=== PATIENT | female | born 1955 | race Caucasian/White ===

== ENCOUNTER 2016-06-20 07:04 | Day surgery (SDC) | payer BC ==
[2016-06-20 09:20] LABS: MCH 28.3 pg (25.7-33.7); MCHC 33.4 g/dl (32.0-36.0); MEAN CELL VOLUME 84.6 fl (80-96); MEAN PLT VOLUME 9.9 fl (7.5-11.1); PLATELET COUNT 70 K/MM3 (134-434); RDW 15.9 % (11.6-15.6)
[2016-06-20 12:42] LABS: MCH 28.5 pg (25.7-33.7); MCHC 33.3 g/dl (32.0-36.0); MEAN CELL VOLUME 85.6 fl (80-96); MEAN PLT VOLUME 8.8 fl (7.5-11.1); PLATELET COUNT 79 K/MM3 (134-434); RDW 15.5 % (11.6-15.6); WHITE BLOOD COUNT 6.3 K/mm3 (4.0-10.0)
--- NOTE | 2016-06-20 13:24 | HP ---
[facility]ellite [facility] - Chief Complaint Chief Complaint: Here for platelet transfusion. Developed a hive over right forearm. No fever/chills/cough/SOB/abdominal pain/nausea/vomiting/diarrhea/ urinary symptoms History Source: Patient - Past Medical History Allergies/Adverse Reactions: Allergies Allergy/AdvReac Type Severity Reaction Status Date / Time Penicillins AdvReac Intermediate Verified 11/05/13 03:19 Cardiovascular: Yes: HTN Endocrine: Yes: Other (hypothyroid) - Current Medications Current Medications: Home Medications Medication Instructions Recorded Ascorbic Acid [Vitamin C] 1 tab PO DAILY 04/07/13 Calcium Carbonate/Vitamin D3 1,200 mg PO DAILY 04/07/13 [Calcium 600 + Vit D 400 Softgl] Ferrous Fumarate [Iron] 65 mg PO DAILY 04/07/13 Hydrochlorothiazide [Hctz -] 1 tab PO DAILY 04/07/13 Levothyroxine [Synthroid -] 75 mg PO DAILY 04/07/13 Lisinopril [Prinivil -] 40 mg PO DAILY 04/07/13 Metformin HCl [Glucophage] 1 tab PO BID 04/07/13 Nadolol 80 mg PO DAILY tablet 06/07/14 Magnesium 250 2 tablet PO DAILY 03/08/15 Satellite Physical Exam - Physical Examination General Appearance: Well Developed, Alert & Oriented x3 Lung: Clear to auscultation, Normal air movement Heart: Regular rate & rhythm, Normal S1, Normal S2 Abdomen: Soft, No tenderness, Normal bowel sounds Extremities: No edema Neurological: Intact Satellite Impression/Plan - Impression/Plan Impression: 60 y/o patient with thrombocytopenia.HEre for transfusion of monodonor platelets. Developed a hive. Benadryl 25mg. Monitor for allergic reaction
[2016-06-20 14:01] VITALS: BP 130/76; PULSE 60; TEMP 97.9
== END 2016-06-20 19:04 | disposition home or self-care (01) ==
LOC: JONCBLOOD 07:04 → J7W 08:53 → JONCBLOOD 19:04
PROVIDERS: ATTEND Internal Medicine Hematology & Oncology
PROC: 30233R1 Transfusion of Nonautologous Platelets into Peripheral Vein, Percutaneous Approach (ICD-10-PCS; principal; 2016-06-20)
PROC: 3E033GC Introduction of Other Therapeutic Substance into Peripheral Vein, Percutaneous Approach (ICD-10-PCS; 2016-06-20)
DX: D69.6 Thrombocytopenia, unspecified (principal); C50.211 Malignant neoplasm of upper-inner quadrant of right female breast; E03.9 Hypothyroidism, unspecified; I10 Essential (primary) hypertension
CPT/HCPCS: 36430; 96374; J1200; 36415; 85027; 86078; 86850; 86900; 86901; P9034; P9038

== ENCOUNTER 2022-11-22 13:23 | Day surgery (SDC) | payer OTHER ==
[2022-11-22] MEDS ORDERED: IRON SUCROSE INJECTION 200 MG in SODIUM CHLORIDE 100 ML IVPB ONE (13:30)
[2022-11-22 14:15] LABS: BASO % 0.8 % (0-2.0); EOS % 3.5 % (0-4.5); HEMATOCRIT 27.2 % (32.4-45.2); HEMOGLOBIN 8.2 GM/dL (10.7-15.3); LYMPH % 21.7 % (8-40); MCH 21.1 pg (25.7-33.7); MCHC 30.1 g/dl (32.0-36.0); MEAN PLT VOLUME 9.1 fl (7.5-11.1); MONO % 9.9 % (3.8-10.2); NEUT % 64.1 % (42.8-82.8); PLATELET COUNT 68 10^3/uL (134-434); RBC 3.88 M/mm3 (3.60-5.2); RDW 19.8 % (11.6-15.6); WHITE BLOOD COUNT 3.5 K/mm3 (4.0-10.0)
[2022-11-22 14:50] LABS: ANISOCYTOSIS 3+; MACROCYTOSIS 0
[2022-11-22 18:05] VITALS: TEMP 98.3
[2022-11-22 18:08] VITALS: BP 127/64; PULSE 83; RESP 16
== END 2022-11-22 15:40 | disposition home or self-care (01) ==
LOC: JONCNONCHE 13:23 → J7W 13:24 → JONCNONCHE 15:40
PROVIDERS: ATTEND Internal Medicine Hematology & Oncology
PROC: 3E033GC Introduction of Other Therapeutic Substance into Peripheral Vein, Percutaneous Approach (ICD-10-PCS; principal; 2022-11-22)
DX: E61.1 Iron deficiency (principal)
CPT/HCPCS: 36415; 85025; 96365; J1756

== ENCOUNTER 2022-11-29 13:39 | Day surgery (SDC) | payer OTHER ==
[~2022-11-29 13:39] MED LIST: IRON SUCROSE INJECTION 200 MG in SODIUM CHLORIDE 100 ML IVPB ONE
[2022-11-29 14:48] LABS: BASO % 0.7 % (0-2.0); EOS % 3.1 % (0-4.5); HEMATOCRIT 27.8 % (32.4-45.2); HEMOGLOBIN 8.2 GM/dL (10.7-15.3); LYMPH % 24.6 % (8-40); MCH 21.2 pg (25.7-33.7); MCHC 29.5 g/dl (32.0-36.0); MEAN CELL VOLUME 71.8 fl (80-96); MEAN PLT VOLUME 9.7 fl (7.5-11.1); NEUT % 61.6 % (42.8-82.8); PLATELET COUNT 63 10^3/uL (134-434); RBC 3.87 M/mm3 (3.60-5.2); RDW 20.8 % (11.6-15.6); WHITE BLOOD COUNT 3.3 K/mm3 (4.0-10.0)
[2022-11-29 15:01] LABS: ANISOCYTOSIS 2+
[2022-11-29 17:28] VITALS: BP 148/83; PULSE 87; RESP 20; TEMP 97.8
== END 2022-11-29 14:35 | disposition home or self-care (01) ==
LOC: JONCNONCHE 13:39 → J7W 13:41 → JONCNONCHE 14:35
PROVIDERS: ATTEND Internal Medicine Hematology & Oncology
DX: E61.1 Iron deficiency (principal)
CPT/HCPCS: 36415; 85025; 96365; J1756

== ENCOUNTER 2022-12-06 13:34 | Day surgery (SDC) | payer OTHER ==
[2022-12-06 14:21] LABS: BASO % 0.8 % (0-2.0); EOS % 3.4 % (0-4.5); HEMATOCRIT 27.1 % (32.4-45.2); HEMOGLOBIN 8.1 GM/dL (10.7-15.3); LYMPH % 22.6 % (8-40); MCH 22.2 pg (25.7-33.7); MCHC 29.9 g/dl (32.0-36.0); MEAN CELL VOLUME 74.2 fl (80-96); MEAN PLT VOLUME 9.2 fl (7.5-11.1); MONO % 10.4 % (3.8-10.2); NEUT % 62.8 % (42.8-82.8); RBC 3.66 M/mm3 (3.60-5.2); RDW 24.6 % (11.6-15.6); WHITE BLOOD COUNT 2.6 K/mm3 (4.0-10.0)
[2022-12-06 14:23] LABS: PLATELET COUNT 50 10^3/uL (134-434)
[2022-12-06 14:41] LABS: ANISOCYTOSIS 3+; MACROCYTOSIS 0
[2022-12-06 15:56] VITALS: BP 137/61; PULSE 87; RESP 18; TEMP 97.7
== END 2022-12-06 14:55 | disposition home or self-care (01) ==
LOC: JONCNONCHE 13:34
PROVIDERS: ATTEND Internal Medicine Hematology & Oncology
PROC: 3E033GC Introduction of Other Therapeutic Substance into Peripheral Vein, Percutaneous Approach (ICD-10-PCS; principal; 2022-12-06)
DX: D50.9 Iron deficiency anemia, unspecified (principal)
CPT/HCPCS: 36415; 85025; 96365; J1756

== ENCOUNTER 2023-01-24 10:18 | Day surgery (SDC) | payer OTHER ==
[2023-01-24 11:43] VITALS: RESP 18; TEMP 98.1
[2023-01-24 11:46] VITALS: BP 107/55; PULSE 77
== END 2023-01-24 11:45 | disposition home or self-care (01) ==
LOC: JONCNONCHE 10:18 → J7W 10:35 → JONCNONCHE 11:45
PROVIDERS: ATTEND Internal Medicine Hematology & Oncology
PROC: 3E033GC Introduction of Other Therapeutic Substance into Peripheral Vein, Percutaneous Approach (ICD-10-PCS; principal; 2023-01-24)
DX: E61.1 Iron deficiency (principal)
CPT/HCPCS: 96365; J1756

== ENCOUNTER 2023-01-31 10:49 | Day surgery (SDC) | payer OTHER ==
[2023-01-31 11:28] LABS: EOS % 3.4 % (0-4.5); HEMATOCRIT 24.5 % (32.4-45.2); HEMOGLOBIN 7.2 GM/dL (10.7-15.3); LYMPH % 27.7 % (8-40); MCHC 29.6 g/dl (32.0-36.0); MEAN CELL VOLUME 74.4 fl (80-96); MEAN PLT VOLUME 8.4 fl (7.5-11.1); MONO % 9.9 % (3.8-10.2); PLATELET COUNT 60 10^3/uL (134-434); RBC 3.29 M/mm3 (3.60-5.2); RDW 23.5 % (11.6-15.6); WHITE BLOOD COUNT 2.7 K/mm3 (4.0-10.0)
[2023-01-31 12:13] LABS: ANISOCYTOSIS 2+; MACROCYTOSIS 0; OVALOCYTE 1+
[2023-01-31 12:22] VITALS: BP 120/66; PULSE 88; RESP 18; TEMP 98.2
== END 2023-01-31 12:05 | disposition home or self-care (01) ==
LOC: J7W 10:49 → JONCNONCHE 10:49
PROVIDERS: ATTEND Internal Medicine Hematology & Oncology
PROC: 3E033GC Introduction of Other Therapeutic Substance into Peripheral Vein, Percutaneous Approach (ICD-10-PCS; principal; 2023-01-31)
DX: E61.1 Iron deficiency (principal); D69.6 Thrombocytopenia, unspecified; I85.11 Secondary esophageal varices with bleeding; C50.211 Malignant neoplasm of upper-inner quadrant of right female breast
CPT/HCPCS: 36415; 85025; 96365; J1756

== ENCOUNTER 2023-02-07 10:36 | Day surgery (SDC) | payer OTHER ==
[~2023-02-07 10:36] MED LIST changes: +IRON SUCROSE COMPLEX 200 MG in SODIUM CHLORIDE 100 ML IVPB ONE; -IRON SUCROSE INJECTION 200 MG in SODIUM CHLORIDE 100 ML IVPB ONE
[2023-02-07 10:59] LABS: BASO % 0.8 % (0-2.0); EOS % 3.2 % (0-4.5); HEMATOCRIT 23.7 % (32.4-45.2); HEMOGLOBIN 7.1 GM/dL (10.7-15.3); LYMPH % 21.7 % (8-40); MCH 22.5 pg (25.7-33.7); MCHC 29.9 g/dl (32.0-36.0); MEAN CELL VOLUME 75.3 fl (80-96); MEAN PLT VOLUME 8.6 fl (7.5-11.1); MONO % 10.7 % (3.8-10.2); NEUT % 63.6 % (42.8-82.8); PLATELET COUNT 68 10^3/uL (134-434); RBC 3.15 M/mm3 (3.60-5.2); RDW 25.1 % (11.6-15.6); WHITE BLOOD COUNT 2.7 K/mm3 (4.0-10.0)
[2023-02-07 11:21] VITALS: RESP 18; TEMP 98.8
[2023-02-07 11:53] LABS: ANISOCYTOSIS 2+; MACROCYTOSIS 0
[2023-02-07 12:04] VITALS: BP 98/51; PULSE 84
== END 2023-02-07 12:10 | disposition home or self-care (01) ==
LOC: JONCNONCHE 10:36 → J7W 10:38 → JONCNONCHE 12:10
PROVIDERS: ATTEND Internal Medicine Hematology & Oncology
PROC: 3E033GC Introduction of Other Therapeutic Substance into Peripheral Vein, Percutaneous Approach (ICD-10-PCS; principal; 2023-02-07)
DX: E61.1 Iron deficiency (principal); D69.6 Thrombocytopenia, unspecified; I85.11 Secondary esophageal varices with bleeding
CPT/HCPCS: 36415; 85025; 96365

== ENCOUNTER 2023-02-14 10:50 | Day surgery (SDC) | payer OTHER ==
[2023-02-14 11:21] LABS: BASO % 1.3 % (0-2.0); EOS % 3.2 % (0-4.5); HEMATOCRIT 22.8 % (32.4-45.2); LYMPH % 22.5 % (8-40); MCHC 30.2 g/dl (32.0-36.0); MEAN CELL VOLUME 76.2 fl (80-96); MEAN PLT VOLUME 8.7 fl (7.5-11.1); PLATELET COUNT 52 10^3/uL (134-434); RBC 2.99 M/mm3 (3.60-5.2); RDW 25.7 % (11.6-15.6); WHITE BLOOD COUNT 2.2 K/mm3 (4.0-10.0)
[2023-02-14 11:32] LABS: HEMOGLOBIN 6.9 GM/dL (10.7-15.3)
[2023-02-14 13:16] LABS: ANISOCYTOSIS 2+; MACROCYTOSIS 0; OVALOCYTE 1+
[2023-02-14 16:11] VITALS: BP 110/62; PULSE 80; RESP 20; TEMP 97.7
== END 2023-02-14 12:30 | disposition home or self-care (01) ==
LOC: JONCNONCHE 10:50 → J7W 10:54 → JONCNONCHE 12:30
PROVIDERS: ATTEND Internal Medicine Hematology & Oncology
PROC: 3E033GC Introduction of Other Therapeutic Substance into Peripheral Vein, Percutaneous Approach (ICD-10-PCS; principal; 2023-02-14)
DX: D50.9 Iron deficiency anemia, unspecified (principal)
CPT/HCPCS: 36415; 85025; 96365

== ENCOUNTER 2023-02-18 08:10 | Day surgery (SDC) | payer OTHER ==
[2023-02-18] MEDS ORDERED: diphenhydrAMINE HCL 25 MG CAPSULE (FP) PO ONE (09:15)
[2023-02-18] MEDS ORDERED: ACETAMINOPHEN 325 MG TABLET (FP) PO ONE (09:15)
[2023-02-18 09:16] LABS: BASO % 1.1 % (0-2.0); EOS % 3.8 % (0-4.5); HEMATOCRIT 23.7 % (32.4-45.2); LYMPH % 20.4 % (8-40); MCH 23.3 pg (25.7-33.7); MCHC 29.3 g/dl (32.0-36.0); MEAN CELL VOLUME 79.4 fl (80-96); MEAN PLT VOLUME 8.8 fl (7.5-11.1); MONO % 11.8 % (3.8-10.2); NEUT % 62.9 % (42.8-82.8); PLATELET COUNT 52 10^3/uL (134-434); RBC 2.99 M/mm3 (3.60-5.2); RDW 26.9 % (11.6-15.6); WHITE BLOOD COUNT 2.4 K/mm3 (4.0-10.0)
[2023-02-18 09:19] LABS: POTASSIUM 4.2 mmol/L (3.5-5.1)
[2023-02-18 09:21] LABS: ALBUMIN 3.2 g/dl (3.4-5.0); CALCIUM 8.9 mg/dL (8.5-10.1)
[2023-02-18 09:22] LABS: BLOOD UREA NITROGEN 19.1 mg/dL (7-18)
[2023-02-18 09:25] LABS: CREATININE 0.8 mg/dL (0.55-1.3)
[2023-02-18 09:26] LABS: BILIRUBIN,TOTAL 0.8 mg/dL (0.2-1); TOT PROT 7.3 g/dl (6.4-8.2)
[2023-02-18] MEDS ORDERED: DEXAMETHASONE 4 MG TABLET (FP) PO ONE (09:30)
[2023-02-18 10:06] LABS: ANISOCYTOSIS 2+; MACROCYTOSIS 0
[2023-02-18] MEDS ORDERED: FUROSEMIDE 40 MG/4 ML INJECTABLE VIAL IVPUSH SCH (11:12)
[2023-02-18 17:50] LABS: HEMOGLOBIN 9.6 GM/dL (10.7-15.3); MCH 24.1 pg (25.7-33.7); MCHC 30.1 g/dl (32.0-36.0); MEAN PLT VOLUME 9.3 fl (7.5-11.1); PLATELET COUNT 55 10^3/uL (134-434); RDW 24.9 % (11.6-15.6); WHITE BLOOD COUNT 2.6 K/mm3 (4.0-10.0)
[2023-02-18 18:01] VITALS: BP 136/69; PULSE 88; RESP 20; TEMP 98.1
== END 2023-02-18 18:01 | disposition home or self-care (01) ==
LOC: JONCBLOOD 08:10 → J7W 08:16 → JONCBLOOD 18:01
PROVIDERS: ATTEND Internal Medicine Hematology & Oncology
PROC: 30233N1 Transfusion of Nonautologous Red Blood Cells into Peripheral Vein, Percutaneous Approach (ICD-10-PCS; principal; 2023-02-18)
DX: D61.1 Drug-induced aplastic anemia (principal); E55.9 Vitamin D deficiency, unspecified; Z88.0 Allergy status to penicillin
CPT/HCPCS: 36415; 36430; 80053; 85025; 85027; 86850; 86900; 86901; 86922; P9058

== ENCOUNTER 2023-03-28 10:59 | Day surgery (SDC) | payer OTHER ==
[~2023-03-28 10:59] MED LIST changes: -IRON SUCROSE COMPLEX 200 MG in SODIUM CHLORIDE 100 ML IVPB ONE; +IRON SUCROSE INJECTION 200 MG in SODIUM CHLORIDE 100 ML IVPB ONE
[2023-03-28 11:18] LABS: BASO % 1.1 % (0-2.0); EOS % 4.1 % (0-4.5); HEMATOCRIT 25.7 % (32.4-45.2); HEMOGLOBIN 7.7 GM/dL (10.7-15.3); LYMPH % 21.5 % (8-40); MCH 21.7 pg (25.7-33.7); MCHC 29.9 g/dl (32.0-36.0); MEAN CELL VOLUME 72.7 fl (80-96); MEAN PLT VOLUME 8.1 fl (7.5-11.1); MONO % 11.2 % (3.8-10.2); NEUT % 62.1 % (42.8-82.8); PLATELET COUNT 67 10^3/uL (134-434); RBC 3.54 M/mm3 (3.60-5.2); RDW 20.8 % (11.6-15.6); WHITE BLOOD COUNT 3.1 K/mm3 (4.0-10.0)
[2023-03-28 12:21] LABS: ANISOCYTOSIS 2+; MACROCYTOSIS 0
[2023-03-28 14:56] VITALS: BP 134/84; PULSE 85; RESP 20; TEMP 98.1
== END 2023-03-28 12:30 | disposition home or self-care (01) ==
LOC: JONCNONCHE 10:59 → J7W 11:15 → JONCNONCHE 12:30
PROVIDERS: ATTEND Internal Medicine Hematology & Oncology
PROC: 3E033GC Introduction of Other Therapeutic Substance into Peripheral Vein, Percutaneous Approach (ICD-10-PCS; principal; 2023-03-28)
DX: E61.1 Iron deficiency (principal)
CPT/HCPCS: 36415; 85025; 96365; J1756

== ENCOUNTER 2023-04-04 10:57 | Day surgery (SDC) | payer OTHER ==
[2023-04-04 17:06] VITALS: RESP 18; TEMP 98.1
[2023-04-04 17:09] VITALS: BP 107/57; PULSE 83
== END 2023-04-04 12:20 | disposition home or self-care (01) ==
LOC: JONCNONCHE 10:57 → J7W 10:58 → JONCNONCHE 12:20
PROVIDERS: ATTEND Internal Medicine Hematology & Oncology
PROC: 3E033GC Introduction of Other Therapeutic Substance into Peripheral Vein, Percutaneous Approach (ICD-10-PCS; principal; 2023-04-04)
DX: D50.9 Iron deficiency anemia, unspecified (principal)
CPT/HCPCS: 96365; J1756

== ENCOUNTER 2023-04-11 10:50 | Day surgery (SDC) | payer OTHER ==
[2023-04-11 11:22] LABS: BASO % 1.2 % (0-2.0); EOS % 3.3 % (0-4.5); HEMATOCRIT 26.2 % (32.4-45.2); LYMPH % 23.6 % (8-40); MCH 23.1 pg (25.7-33.7); MCHC 30.5 g/dl (32.0-36.0); MEAN CELL VOLUME 75.6 fl (80-96); MEAN PLT VOLUME 8.6 fl (7.5-11.1); MONO % 10.2 % (3.8-10.2); NEUT % 61.7 % (42.8-82.8); PLATELET COUNT 75 10^3/uL (134-434); RBC 3.47 M/mm3 (3.60-5.2); RDW 25.8 % (11.6-15.6); WHITE BLOOD COUNT 3.7 K/mm3 (4.0-10.0)
[2023-04-11 11:51] LABS: ANISOCYTOSIS 3+; MACROCYTOSIS 0
[2023-04-11 17:19] VITALS: BP 107/59; PULSE 88; RESP 20; TEMP 97.9
== END 2023-04-11 13:00 | disposition home or self-care (01) ==
LOC: J7W 10:50 → JONCNONCHE 10:50
PROVIDERS: ATTEND Internal Medicine Hematology & Oncology
PROC: 3E033GC Introduction of Other Therapeutic Substance into Peripheral Vein, Percutaneous Approach (ICD-10-PCS; principal; 2023-04-11)
DX: E61.1 Iron deficiency (principal)
CPT/HCPCS: 36415; 85025; 96365; J1756

== ENCOUNTER 2023-04-18 10:49 | Day surgery (SDC) | payer OTHER ==
[~2023-04-18 10:49] MED LIST changes: +IRON SUCROSE COMPLEX 200 MG in SODIUM CHLORIDE 100 ML IVPB ONE; -IRON SUCROSE INJECTION 200 MG in SODIUM CHLORIDE 100 ML IVPB ONE
[2023-04-18 11:15] LABS: BASO % 0.8 % (0-2.0); HEMATOCRIT 25.9 % (32.4-45.2); HEMOGLOBIN 7.8 GM/dL (10.7-15.3); LYMPH % 19.8 % (8-40); MCH 23.4 pg (25.7-33.7); MEAN CELL VOLUME 77.9 fl (80-96); MEAN PLT VOLUME 8.2 fl (7.5-11.1); MONO % 10.6 % (3.8-10.2); NEUT % 64.8 % (42.8-82.8); PLATELET COUNT 72 10^3/uL (134-434); RBC 3.32 M/mm3 (3.60-5.2); RDW 26.1 % (11.6-15.6)
[2023-04-18 11:39] LABS: ANISOCYTOSIS 2+
[2023-04-18 11:40] LABS: MACROCYTOSIS 1+
[2023-04-18 17:17] VITALS: BP 117/61; PULSE 83; RESP 20; TEMP 98.4
== END 2023-04-18 12:30 | disposition home or self-care (01) ==
LOC: JONCNONCHE 10:49 → J7W 10:49 → JONCNONCHE 12:30
PROVIDERS: ATTEND Internal Medicine Hematology & Oncology
PROC: 3E033GC Introduction of Other Therapeutic Substance into Peripheral Vein, Percutaneous Approach (ICD-10-PCS; principal; 2023-04-18)
DX: E61.1 Iron deficiency (principal)
CPT/HCPCS: 36415; 85025; 96365

== ENCOUNTER 2023-04-25 10:53 | Day surgery (SDC) | payer OTHER ==
[2023-04-25 11:28] LABS: BASO % 0.9 % (0-2.0); EOS % 3.4 % (0-4.5); HEMOGLOBIN 7.6 GM/dL (10.7-15.3); LYMPH % 21.1 % (8-40); MCHC 30.4 g/dl (32.0-36.0); MEAN CELL VOLUME 78.9 fl (80-96); MEAN PLT VOLUME 8.5 fl (7.5-11.1); MONO % 11.3 % (3.8-10.2); NEUT % 63.3 % (42.8-82.8); PLATELET COUNT 57 10^3/uL (134-434); RBC 3.16 M/mm3 (3.60-5.2); RDW 26.6 % (11.6-15.6); WHITE BLOOD COUNT 2.6 K/mm3 (4.0-10.0)
[2023-04-25] MEDS ORDERED: IRON SUCROSE COMPLEX 200 MG in SODIUM CHLORIDE 100 ML IVPB ONE (11:30)
[2023-04-25 12:13] VITALS: RESP 18; TEMP 98.2
[2023-04-25 12:16] VITALS: BP 129/62; PULSE 80
[2023-04-25 12:46] LABS: ANISOCYTOSIS 2+; MACROCYTOSIS 0
== END 2023-04-25 12:25 | disposition home or self-care (01) ==
LOC: JONCNONCHE 10:53 → J7W 10:54 → JONCNONCHE 12:25
PROVIDERS: ATTEND Internal Medicine Hematology & Oncology
PROC: 3E033GC Introduction of Other Therapeutic Substance into Peripheral Vein, Percutaneous Approach (ICD-10-PCS; principal; 2023-04-25)
DX: E61.1 Iron deficiency (principal)
CPT/HCPCS: 36415; 85025; 96365

== ENCOUNTER 2023-05-09 11:00 | Day surgery (SDC) | payer OTHER ==
[2023-05-09 11:23] LABS: EOS % 3.9 % (0-4.5); HEMATOCRIT 25.3 % (32.4-45.2); HEMOGLOBIN 7.6 GM/dL (10.7-15.3); LYMPH % 18.2 % (8-40); MCH 23.7 pg (25.7-33.7); MCHC 30.1 g/dl (32.0-36.0); MEAN CELL VOLUME 78.7 fl (80-96); MEAN PLT VOLUME 8.7 fl (7.5-11.1); MONO % 10.3 % (3.8-10.2); NEUT % 66.6 % (42.8-82.8); PLATELET COUNT 67 10^3/uL (134-434); RBC 3.21 M/mm3 (3.60-5.2); RDW 24.1 % (11.6-15.6); WHITE BLOOD COUNT 2.5 K/mm3 (4.0-10.0)
[2023-05-09] MEDS: IRON SUCROSE INJECTION 200 MG in SODIUM CHLORIDE 100 ML IVPB ONE (13:01)
[2023-05-09 18:36] VITALS: RESP 18; TEMP 98
[2023-05-09 18:37] VITALS: BP 118/80; PULSE 78
== END 2023-05-09 14:00 | disposition home or self-care (01) ==
LOC: JONCNONCHE 11:00 → J7W 11:00 → JONCNONCHE 14:00
PROVIDERS: ATTEND Internal Medicine Hematology & Oncology
PROC: 3E033GC Introduction of Other Therapeutic Substance into Peripheral Vein, Percutaneous Approach (ICD-10-PCS; principal; 2023-05-09)
DX: E61.1 Iron deficiency (principal)
CPT/HCPCS: 36415; 85025; 96365; J1756

== ENCOUNTER 2023-05-16 11:01 | Day surgery (SDC) | payer OTHER ==
[2023-05-16 11:23] LABS: BASO % 0.7 % (0-2.0); EOS % 4.6 % (0-4.5); HEMATOCRIT 23.5 % (32.4-45.2); HEMOGLOBIN 7.2 GM/dL (10.7-15.3); LYMPH % 20.5 % (8-40); MCH 24.1 pg (25.7-33.7); MCHC 30.7 g/dl (32.0-36.0); MEAN CELL VOLUME 78.5 fl (80-96); MEAN PLT VOLUME 8.4 fl (7.5-11.1); MONO % 10.7 % (3.8-10.2); NEUT % 63.5 % (42.8-82.8); PLATELET COUNT 62 10^3/uL (134-434); RDW 25.2 % (11.6-15.6); WHITE BLOOD COUNT 2.9 K/mm3 (4.0-10.0)
[2023-05-16] MEDS: IRON SUCROSE INJECTION 200 MG in SODIUM CHLORIDE 100 ML IVPB ONE (11:25)
[2023-05-16 12:28] LABS: ANISOCYTOSIS 3+; MACROCYTOSIS 0
[2023-05-16 15:39] VITALS: RESP 16; TEMP 98.2
[2023-05-16 15:41] VITALS: BP 103/58; PULSE 82
== END 2023-05-16 12:25 | disposition home or self-care (01) ==
LOC: J7W 11:01 → JONCNONCHE 11:01
PROVIDERS: ATTEND Internal Medicine Hematology & Oncology
PROC: 3E033GC Introduction of Other Therapeutic Substance into Peripheral Vein, Percutaneous Approach (ICD-10-PCS; principal; 2023-05-16)
DX: E61.1 Iron deficiency (principal)
CPT/HCPCS: 36415; 85025; 96365; J1756

== ENCOUNTER 2023-05-30 10:53 | Day surgery (SDC) | payer OTHER ==
[2023-05-30] MEDS: IRON SUCROSE INJECTION 200 MG in SODIUM CHLORIDE 100 ML IVPB ONE (11:16)
[2023-05-30 11:21] LABS: BASO % 1.4 % (0-2.0); EOS % 4.7 % (0-4.5); HEMATOCRIT 26.9 % (32.4-45.2); HEMOGLOBIN 8.2 GM/dL (10.7-15.3); LYMPH % 21.9 % (8-40); MCHC 30.6 g/dl (32.0-36.0); MEAN CELL VOLUME 81.7 fl (80-96); MEAN PLT VOLUME 9.6 fl (7.5-11.1); MONO % 11.9 % (3.8-10.2); NEUT % 60.1 % (42.8-82.8); PLATELET COUNT 65 10^3/uL (134-434); RBC 3.29 M/mm3 (3.60-5.2); RDW 22.9 % (11.6-15.6); WHITE BLOOD COUNT 2.4 K/mm3 (4.0-10.0)
[2023-05-30 12:07] LABS: ANISOCYTOSIS 2+; MACROCYTOSIS 0; TARGET CELLS 0
[2023-05-30 18:02] VITALS: BP 111/59; PULSE 77; RESP 16; TEMP 97.8
== END 2023-05-30 12:15 | disposition home or self-care (01) ==
LOC: JONCNONCHE 10:53 → J7W 10:53 → JONCNONCHE 12:15
PROVIDERS: ATTEND Internal Medicine Hematology & Oncology
PROC: 3E033GC Introduction of Other Therapeutic Substance into Peripheral Vein, Percutaneous Approach (ICD-10-PCS; principal; 2023-05-30)
DX: D50.9 Iron deficiency anemia, unspecified (principal)
CPT/HCPCS: 36415; 85025; 96365; J1756

== ENCOUNTER 2023-06-20 10:57 | Day surgery (SDC) | payer OTHER ==
[2023-06-20 11:34] LABS: BASO % 0.7 % (0-2.0); HEMATOCRIT 23.1 % (32.4-45.2); LYMPH % 27.7 % (8-40); MCH 23.6 pg (25.7-33.7); MCHC 29.8 g/dl (32.0-36.0); MEAN CELL VOLUME 79.2 fl (80-96); MEAN PLT VOLUME 8.9 fl (7.5-11.1); MONO % 10.2 % (3.8-10.2); NEUT % 57.4 % (42.8-82.8); PLATELET COUNT 65 10^3/uL (134-434); RBC 2.92 M/mm3 (3.60-5.2); RDW 21.5 % (11.6-15.6); WHITE BLOOD COUNT 2.3 K/mm3 (4.0-10.0)
[2023-06-20 11:38] LABS: HEMOGLOBIN 6.9 GM/dL (10.7-15.3)
[2023-06-20] MEDS: IRON SUCROSE INJECTION 300 MG in SODIUM CHLORIDE 250 ML IVPB ONE (11:57)
[2023-06-20 12:27] LABS: ANISOCYTOSIS 2+; MACROCYTOSIS 0
[2023-06-20 16:59] VITALS: BP 118/55; PULSE 89; RESP 20; TEMP 98.7
== END 2023-06-20 13:10 | disposition home or self-care (01) ==
LOC: JONCNONCHE 10:57 → J7W 10:58 → JONCNONCHE 13:10
PROVIDERS: ATTEND Internal Medicine Hematology & Oncology
PROC: 3E033GC Introduction of Other Therapeutic Substance into Peripheral Vein, Percutaneous Approach (ICD-10-PCS; principal; 2023-06-20)
DX: D50.9 Iron deficiency anemia, unspecified (principal)
CPT/HCPCS: 36415; 85025; 96365; J1756

== ENCOUNTER 2023-06-27 10:45 | Day surgery (SDC) | payer OTHER ==
[2023-06-27] MEDS: IRON SUCROSE INJECTION 300 MG in SODIUM CHLORIDE 250 ML IVPB ONE (12:01)
[2023-06-27 16:52] VITALS: RESP 18; TEMP 97.7
[2023-06-27 16:54] VITALS: BP 103/51; PULSE 71
== END 2023-06-27 14:00 | disposition home or self-care (01) ==
LOC: J7W 10:45 → JONCNONCHE 10:45
PROVIDERS: ATTEND Internal Medicine Hematology & Oncology
PROC: 3E033GC Introduction of Other Therapeutic Substance into Peripheral Vein, Percutaneous Approach (ICD-10-PCS; principal; 2023-06-27)
DX: D50.9 Iron deficiency anemia, unspecified (principal)
CPT/HCPCS: 96365; J1756

== ENCOUNTER 2023-07-04 10:45 | Day surgery (SDC) | payer OTHER ==
[2023-07-04 11:37] LABS: BASO % 1.1 % (0-2.0); EOS % 4.4 % (0-4.5); HEMATOCRIT 23.4 % (32.4-45.2); LYMPH % 21.8 % (8-40); MCH 24.8 pg (25.7-33.7); MCHC 29.7 g/dl (32.0-36.0); MEAN CELL VOLUME 83.3 fl (80-96); MEAN PLT VOLUME 9.4 fl (7.5-11.1); MONO % 11.8 % (3.8-10.2); NEUT % 60.9 % (42.8-82.8); PLATELET COUNT 63 10^3/uL (134-434); RBC 2.81 M/mm3 (3.60-5.2); RDW 25.5 % (11.6-15.6); WHITE BLOOD COUNT 2.2 K/mm3 (4.0-10.0)
[2023-07-04] MEDS: IRON SUCROSE INJECTION 300 MG in SODIUM CHLORIDE 250 ML IVPB ONE (11:40)
[2023-07-04 12:32] LABS: ANISOCYTOSIS 2+; MACROCYTOSIS 1+
[2023-07-04 16:34] VITALS: BP 107/54; PULSE 88; RESP 18; TEMP 98
== END 2023-07-04 12:40 | disposition home or self-care (01) ==
LOC: JONCNONCHE 10:45 → J7W 12:21 → JONCNONCHE 12:40
PROVIDERS: ATTEND Internal Medicine Hematology & Oncology
PROC: 3E033GC Introduction of Other Therapeutic Substance into Peripheral Vein, Percutaneous Approach (ICD-10-PCS; principal; 2023-07-04)
DX: E61.1 Iron deficiency (principal)
CPT/HCPCS: 36415; 85025; 96365; J1756

== ENCOUNTER 2023-07-11 10:44 | Day surgery (SDC) | payer OTHER ==
[2023-07-11 11:16] LABS: BASO % 0.9 % (0-2.0); EOS % 4.6 % (0-4.5); HEMATOCRIT 23.4 % (32.4-45.2); HEMOGLOBIN 7.1 GM/dL (10.7-15.3); LYMPH % 25.3 % (8-40); MCH 25.5 pg (25.7-33.7); MCHC 30.4 g/dl (32.0-36.0); MEAN CELL VOLUME 83.8 fl (80-96); MEAN PLT VOLUME 8.7 fl (7.5-11.1); MONO % 12.4 % (3.8-10.2); NEUT % 56.8 % (42.8-82.8); PLATELET COUNT 61 10^3/uL (134-434); RBC 2.79 M/mm3 (3.60-5.2); RDW 25.8 % (11.6-15.6); WHITE BLOOD COUNT 2.3 K/mm3 (4.0-10.0)
[2023-07-11] MEDS: IRON SUCROSE INJECTION 300 MG in SODIUM CHLORIDE 250 ML IVPB ONE (11:30)
[2023-07-11 11:41] LABS: ANISOCYTOSIS 3+; MACROCYTOSIS 0
[2023-07-11 15:28] VITALS: BP 136/61; PULSE 84; RESP 16; TEMP 97.8
== END 2023-07-11 13:30 | disposition home or self-care (01) ==
LOC: JONCNONCHE 10:44 → J7W 11:00 → JONCNONCHE 13:30
PROVIDERS: ATTEND Internal Medicine Hematology & Oncology
PROC: 3E033GC Introduction of Other Therapeutic Substance into Peripheral Vein, Percutaneous Approach (ICD-10-PCS; principal; 2023-07-11)
DX: D50.9 Iron deficiency anemia, unspecified (principal)
CPT/HCPCS: 36415; 85025; 96365; J1756

== ENCOUNTER 2023-07-15 07:30 | Day surgery (SDC) | payer OTHER ==
[2023-07-15 08:00] LABS: BASO % 1.3 % (0-2.0); HEMATOCRIT 24.3 % (32.4-45.2); HEMOGLOBIN 7.6 GM/dL (10.7-15.3); LYMPH % 20.1 % (8-40); MCH 26.1 pg (25.7-33.7); MCHC 31.2 g/dl (32.0-36.0); MEAN CELL VOLUME 83.6 fl (80-96); MEAN PLT VOLUME 9.6 fl (7.5-11.1); MONO % 13.5 % (3.8-10.2); NEUT % 60.1 % (42.8-82.8); PLATELET COUNT 60 10^3/uL (134-434); RBC 2.91 M/mm3 (3.60-5.2); RDW 25.8 % (11.6-15.6)
[2023-07-15 08:14] LABS: ALBUMIN 3.1 g/dl (3.4-5.0); BLOOD UREA NITROGEN 14.7 mg/dL (7-18); CALCIUM 8.8 mg/dL (8.5-10.1); MAGNESIUM 1.5 mg/dL (1.8-2.4)
[2023-07-15 08:16] LABS: CREATININE 0.8 mg/dL (0.55-1.3)
[2023-07-15 08:18] LABS: TOT PROT 6.6 g/dl (6.4-8.2)
[2023-07-15 08:45] LABS: ANISOCYTOSIS 2+; MACROCYTOSIS 0
[2023-07-15] MEDS: ACETAMINOPHEN 325 MG TABLET (FP) PO ONE (08:56)
[2023-07-15] MEDS: diphenhydrAMINE HCL 25 MG CAPSULE (FP) PO ONE (08:56)
[2023-07-15] MEDS: DEXAMETHASONE 4 MG TABLET (FP) PO ONE (08:56)
[2023-07-15 10:03] VITALS: RESP 20
[2023-07-15] MEDS: MAGNESIUM OXIDE 400 MG TABLET (FP) PO ONE (11:56)
[2023-07-15] MEDS: MAGNESIUM 2GM/50ML STERILE WATER IVPB IVPB ONE (14:04)
[2023-07-15] MEDS: FUROSEMIDE 40 MG/4 ML INJECTABLE VIAL IVPUSH ONE (14:11)
[2023-07-15] MEDS: TBO-FILGRASTIM 480 MCG/0.8 ML DISP.SYRIN SQ ONE (18:00)
[2023-07-15 18:44] VITALS: BP 122/64
[2023-07-15 19:01] LABS: BASO % 3.4 % (0-2.0); EOS % 0.8 % (0-4.5); HEMATOCRIT 34.2 % (32.4-45.2); HEMOGLOBIN 10.5 GM/dL (10.7-15.3); LYMPH % 51.2 % (8-40); MCH 26.7 pg (25.7-33.7); MCHC 30.8 g/dl (32.0-36.0); MEAN CELL VOLUME 86.7 fl (80-96); MEAN PLT VOLUME 9.3 fl (7.5-11.1); MONO % 3.1 % (3.8-10.2); NEUT % 41.5 % (42.8-82.8); PLATELET COUNT 55 10^3/uL (134-434); RBC 3.94 M/mm3 (3.60-5.2); RDW 24.2 % (11.6-15.6)
[2023-07-15 19:13] LABS: WHITE BLOOD COUNT 0.8 K/mm3 (4.0-10.0)
[2023-07-16 07:43] VITALS: PULSE 76; TEMP 98.2
== END 2023-07-15 18:44 | disposition home or self-care (01) ==
LOC: JONCBLOOD 07:30 → J7W 07:38 → JONCBLOOD 18:44
PROVIDERS: ATTEND Internal Medicine Hematology & Oncology
PROC: 30233N1 Transfusion of Nonautologous Red Blood Cells into Peripheral Vein, Percutaneous Approach (ICD-10-PCS; principal; 2023-07-15)
DX: D50.9 Iron deficiency anemia, unspecified (principal)
CPT/HCPCS: 36415; 36430; 80053; 83735; 85025; 86850; 86900; 86901; 86922; 96372; J1447; P9058

== ENCOUNTER 2023-07-16 10:04 | Day surgery (SDC) | payer OTHER ==
[2023-07-16] MEDS: TBO-FILGRASTIM 480 MCG/0.8 ML DISP.SYRIN SQ ONE (10:20)
[2023-07-16 10:45] VITALS: TEMP 97.4
[2023-07-16 10:47] LABS: BASO % 0.2 % (0-2.0); EOS % 0.2 % (0-4.5); HEMATOCRIT 31.2 % (32.4-45.2); HEMOGLOBIN 9.6 GM/dL (10.7-15.3); LYMPH % 4.8 % (8-40); MCH 26.2 pg (25.7-33.7); MCHC 30.8 g/dl (32.0-36.0); MEAN CELL VOLUME 85.1 fl (80-96); MEAN PLT VOLUME 9.7 fl (7.5-11.1); MONO % 5.8 % (3.8-10.2); PLATELET COUNT 58 10^3/uL (134-434); RBC 3.66 M/mm3 (3.60-5.2); RDW 23.8 % (11.6-15.6)
[2023-07-16 10:48] VITALS: BP 116/71; RESP 18
[2023-07-16 10:49] VITALS: PULSE 98
== END 2023-07-16 10:20 | disposition home or self-care (01) ==
LOC: JONCCHEMO 10:04 → J7W 10:30
PROVIDERS: ATTEND Internal Medicine Hematology & Oncology
PROC: 3E013GC Introduction of Other Therapeutic Substance into Subcutaneous Tissue, Percutaneous Approach (ICD-10-PCS; principal; 2023-07-16)
DX: E61.1 Iron deficiency (principal)
CPT/HCPCS: 36415; 85025; 96372; J1447

== ENCOUNTER 2023-09-05 10:53 | Day surgery (SDC) | payer OTHER ==
[2023-09-05] MEDS: IRON SUCROSE INJECTION 300 MG in SODIUM CHLORIDE 250 ML IVPB ONE (11:15)
[2023-09-05] MEDS: MAGNESIUM SULFATE IN WATER 2 GM/50 ML IVPB IVPB ONE (12:50)
[2023-09-05 17:03] VITALS: RESP 16; TEMP 97.7
[2023-09-05 17:08] VITALS: BP 115/60; PULSE 68
== END 2023-09-05 14:00 | disposition home or self-care (01) ==
LOC: JONCCHEMO 10:53 → J7W 10:53 → JONCCHEMO 14:00
PROVIDERS: ATTEND Internal Medicine Hematology & Oncology
PROC: 3E033GC Introduction of Other Therapeutic Substance into Peripheral Vein, Percutaneous Approach (ICD-10-PCS; principal; 2023-09-05)
DX: E61.1 Iron deficiency (principal)
CPT/HCPCS: 96365; 96367; J1756

== ENCOUNTER 2023-09-12 10:30 | Day surgery (SDC) | payer OTHER ==
[2023-09-12] MEDS: IRON SUCROSE INJECTION 300 MG in SODIUM CHLORIDE 250 ML IVPB ONE (11:15)
[2023-09-12] MEDS: MAGNESIUM SULFATE IN WATER 2 GM/50 ML IVPB IVPB ONE (13:01)
[2023-09-12 15:43] VITALS: BP 108/55; PULSE 75; RESP 20
[2023-09-12 15:52] VITALS: TEMP 97.7
== END 2023-09-12 14:30 | disposition home or self-care (01) ==
LOC: JONCCHEMO 10:30 → J7W 10:30 → JONCCHEMO 14:30
PROVIDERS: ATTEND Internal Medicine Hematology & Oncology
PROC: 3E033GC Introduction of Other Therapeutic Substance into Peripheral Vein, Percutaneous Approach (ICD-10-PCS; principal; 2023-09-12)
DX: E61.1 Iron deficiency (principal)
CPT/HCPCS: 96365; J1756

== ENCOUNTER 2023-09-19 11:10 | Day surgery (SDC) | payer OTHER ==
[2023-09-19] MEDS: MAGNESIUM SULFATE IN WATER 2 GM/50 ML IVPB IVPB ONE (11:11)
[2023-09-19 11:16] LABS: BASO % 0.8 % (0-2.0); EOS % 5.3 % (0-4.5); LYMPH % 18.6 % (8-40); MCH 26.9 pg (25.7-33.7); MCHC 32.2 g/dl (32.0-36.0); MEAN CELL VOLUME 83.5 fl (80-96); MEAN PLT VOLUME 9.4 fl (7.5-11.1); NEUT % 61.3 % (42.8-82.8); PLATELET COUNT 50 10^3/uL (134-434); RBC 3.36 M/mm3 (3.60-5.2); WHITE BLOOD COUNT 2.2 K/mm3 (4.0-10.0)
[2023-09-19 11:34] LABS: ANISOCYTOSIS 1+; MACROCYTOSIS 1+
[2023-09-19] MEDS: IRON SUCROSE INJECTION 300 MG in SODIUM CHLORIDE 250 ML IVPB ONE (12:05)
[2023-09-19 15:31] VITALS: RESP 20; TEMP 98.3
[2023-09-19 15:42] VITALS: BP 101/57; PULSE 71
== END 2023-09-19 14:00 | disposition home or self-care (01) ==
LOC: JONCCHEMO 11:10 → J7W 11:11 → JONCCHEMO 14:00
PROVIDERS: ATTEND Internal Medicine Hematology & Oncology
PROC: 3E033GC Introduction of Other Therapeutic Substance into Peripheral Vein, Percutaneous Approach (ICD-10-PCS; principal; 2023-09-19)
DX: E61.1 Iron deficiency (principal)
CPT/HCPCS: 36415; 83735; 85025; 96365; J1756

== ENCOUNTER 2023-09-26 11:03 | Day surgery (SDC) | payer OTHER ==
[2023-09-26] MEDS: IRON SUCROSE INJECTION 300 MG in SODIUM CHLORIDE 250 ML IVPB ONE (11:23)
[2023-09-26 11:31] LABS: BASO % 0.8 % (0-2.0); EOS % 4.6 % (0-4.5); HEMATOCRIT 28.8 % (32.4-45.2); HEMOGLOBIN 9.1 GM/dL (10.7-15.3); LYMPH % 19.9 % (8-40); MCH 26.7 pg (25.7-33.7); MCHC 31.7 g/dl (32.0-36.0); MEAN CELL VOLUME 84.4 fl (80-96); MEAN PLT VOLUME 8.6 fl (7.5-11.1); MONO % 9.2 % (3.8-10.2); NEUT % 65.5 % (42.8-82.8); PLATELET COUNT 50 10^3/uL (134-434); RBC 3.41 M/mm3 (3.60-5.2); RDW 23.6 % (11.6-15.6); WHITE BLOOD COUNT 2.2 K/mm3 (4.0-10.0)
[2023-09-26] MEDS: MAGNESIUM SULFATE IN WATER 2 GM/50 ML IVPB IVPB ONE (13:00)
[2023-09-26 16:02] VITALS: TEMP 97.9
[2023-09-26 16:10] VITALS: BP 131/65; PULSE 80; RESP 20
== END 2023-09-26 14:20 | disposition home or self-care (01) ==
LOC: JONCNONCHE 11:03 → J7W 11:04 → JONCNONCHE 14:20
PROVIDERS: ATTEND Internal Medicine Hematology & Oncology
PROC: 3E033GC Introduction of Other Therapeutic Substance into Peripheral Vein, Percutaneous Approach (ICD-10-PCS; principal; 2023-09-26)
DX: D50.9 Iron deficiency anemia, unspecified (principal)
CPT/HCPCS: 36415; 83735; 85025; 96365; J1756

== ENCOUNTER 2023-10-10 11:09 | Day surgery (SDC) | payer OTHER ==
[2023-10-10] MEDS: MAGNESIUM SULFATE IN WATER 2 GM/50 ML IVPB IVPB ONE (11:40)
[2023-10-10 11:47] LABS: HEMATOCRIT 25.6 % (32.4-45.2); HEMOGLOBIN 8.2 GM/dL (10.7-15.3); MCH 27.2 pg (25.7-33.7); MEAN CELL VOLUME 85.2 fl (80-96); MEAN PLT VOLUME 9.4 fl (7.5-11.1); PLATELET COUNT 48 10^3/uL (134-434); RBC 3.01 M/mm3 (3.60-5.2); RDW 21.5 % (11.6-15.6)
[2023-10-10 11:54] LABS: WHITE BLOOD COUNT 1.9 K/mm3 (4.0-10.0)
[2023-10-10 12:28] LABS: ANISOCYTOSIS 2+; MACROCYTOSIS 0
[2023-10-10] MEDS: IRON SUCROSE INJECTION 300 MG in SODIUM CHLORIDE 250 ML IVPB ONE (12:45)
[2023-10-10 13:13] VITALS: RESP 20; TEMP 98.3
[2023-10-10 14:19] VITALS: BP 123/64; PULSE 75
== END 2023-10-10 14:20 | disposition home or self-care (01) ==
LOC: JONCNONCHE 11:09 → J7W 11:14 → JONCNONCHE 14:20
PROVIDERS: ATTEND Internal Medicine Hematology & Oncology
PROC: 3E033GC Introduction of Other Therapeutic Substance into Peripheral Vein, Percutaneous Approach (ICD-10-PCS; principal; 2023-10-10)
DX: E61.1 Iron deficiency (principal)
CPT/HCPCS: 36415; 85025; 96365; J1756

== ENCOUNTER 2023-10-17 11:04 | Day surgery (SDC) | payer OTHER ==
[2023-10-17] MEDS: IRON SUCROSE INJECTION 300 MG in SODIUM CHLORIDE 250 ML IVPB ONE (11:17)
[2023-10-17] MEDS: MAGNESIUM SULFATE IN WATER 2 GM/50 ML IVPB IVPB ONE (11:18)
[2023-10-17 11:40] LABS: BASO % 0.9 % (0-2.0); EOS % 4.6 % (0-4.5); HEMATOCRIT 27.7 % (32.4-45.2); HEMOGLOBIN 8.9 GM/dL (10.7-15.3); LYMPH % 21.4 % (8-40); MCH 27.2 pg (25.7-33.7); MCHC 32.1 g/dl (32.0-36.0); MEAN CELL VOLUME 84.6 fl (80-96); MONO % 9.4 % (3.8-10.2); NEUT % 63.7 % (42.8-82.8); PLATELET COUNT 47 10^3/uL (134-434); RBC 3.27 M/mm3 (3.60-5.2); RDW 22.5 % (11.6-15.6); WHITE BLOOD COUNT 2.1 K/mm3 (4.0-10.0)
[2023-10-17 12:17] LABS: ANISOCYTOSIS 2+; MACROCYTOSIS 1+
[2023-10-17 12:18] LABS: PLATELET ESTIMATE DECREASED
[2023-10-17 17:07] VITALS: BP 134/69; PULSE 76; RESP 20; TEMP 98.2
== END 2023-10-17 12:10 | disposition home or self-care (01) ==
LOC: JONCNONCHE 11:04 → J7W 11:04 → JONCNONCHE 12:10
PROVIDERS: ATTEND Internal Medicine Hematology & Oncology
PROC: 3E033GC Introduction of Other Therapeutic Substance into Peripheral Vein, Percutaneous Approach (ICD-10-PCS; principal; 2023-10-17)
DX: D50.9 Iron deficiency anemia, unspecified (principal)
CPT/HCPCS: 36415; 83735; 85025; 96365; J1756

== ENCOUNTER 2023-10-24 10:45 | Day surgery (SDC) | payer OTHER ==
[2023-10-24] MEDS: IRON SUCROSE INJECTION 300 MG in SODIUM CHLORIDE 250 ML IVPB ONE (11:19)
[2023-10-24 11:25] LABS: BASO % 0.9 % (0-2.0); HEMATOCRIT 30.1 % (32.4-45.2); HEMOGLOBIN 9.7 GM/dL (10.7-15.3); MCH 27.4 pg (25.7-33.7); MCHC 32.1 g/dl (32.0-36.0); MEAN CELL VOLUME 85.4 fl (80-96); MEAN PLT VOLUME 9.4 fl (7.5-11.1); MONO % 5.1 % (3.8-10.2); PLATELET COUNT 51 10^3/uL (134-434); RBC 3.52 M/mm3 (3.60-5.2); RDW 22.8 % (11.6-15.6); WHITE BLOOD COUNT 2.6 K/mm3 (4.0-10.0)
[2023-10-24 12:14] LABS: ANISOCYTOSIS 3+; MACROCYTOSIS 3+
[2023-10-24] MEDS: MAGNESIUM SULFATE IN WATER 2 GM/50 ML IVPB IVPB ONE (12:57)
[2023-10-24 18:48] VITALS: BP 130/62; PULSE 75; RESP 16; TEMP 97.8
== END 2023-10-24 14:00 | disposition home or self-care (01) ==
LOC: JONCNONCHE 10:45 → J7W 10:45 → JONCNONCHE 14:00
PROVIDERS: ATTEND Internal Medicine Hematology & Oncology
PROC: 3E033GC Introduction of Other Therapeutic Substance into Peripheral Vein, Percutaneous Approach (ICD-10-PCS; principal; 2023-10-24)
DX: D50.9 Iron deficiency anemia, unspecified (principal)
CPT/HCPCS: 36415; 83735; 85025; 96365; J1756

== ENCOUNTER 2023-12-19 11:01 | Day surgery (SDC) | payer OTHER ==
[~2023-12-19 11:01] MED LIST changes: -IRON SUCROSE COMPLEX 200 MG in SODIUM CHLORIDE 100 ML IVPB ONE; +IRON SUCROSE INJECTION 300 MG in SODIUM CHLORIDE 250 ML IVPB ONE; +MAGNESIUM SULFATE IN WATER 2 GM/50 ML IVPB IVPB ONE
[2023-12-19] MEDS: MAGNESIUM SULFATE IN WATER 2 GM/50 ML IVPB IVPB ONE (11:50)
[2023-12-19] MEDS: IRON SUCROSE INJECTION 300 MG in SODIUM CHLORIDE 250 ML IVPB ONE (12:56)
[2023-12-19 17:14] VITALS: TEMP 98.1
[2023-12-19 17:35] VITALS: BP 105/57; PULSE 69; RESP 20
== END 2023-12-19 14:55 | disposition home or self-care (01) ==
LOC: JONCNONCHE 11:01 → J7W 11:02 → JONCNONCHE 14:55
PROVIDERS: ATTEND Internal Medicine Hematology & Oncology
PROC: 3E033GC Introduction of Other Therapeutic Substance into Peripheral Vein, Percutaneous Approach (ICD-10-PCS; principal; 2023-12-19)
DX: D50.9 Iron deficiency anemia, unspecified (principal); D70.9 Neutropenia, unspecified
CPT/HCPCS: 96365; J1756

== ENCOUNTER 2023-12-26 10:54 | Day surgery (SDC) | payer OTHER ==
[2023-12-26] MEDS: MAGNESIUM SULFATE IN WATER 2 GM/50 ML IVPB IVPB ONE (11:19)
[2023-12-26 11:39] LABS: BASO % 0.6 % (0-2.0); HEMOGLOBIN 8.1 GM/dL (10.7-15.3); LYMPH % 19.9 % (8-40); MCH 25.2 pg (25.7-33.7); MCHC 31.1 g/dl (32.0-36.0); MEAN CELL VOLUME 81.2 fl (80-96); MONO % 7.7 % (3.8-10.2); NEUT % 67.8 % (42.8-82.8); PLATELET COUNT 49 10^3/uL (134-434); RDW 20.3 % (11.6-15.6); WHITE BLOOD COUNT 2.2 K/mm3 (4.0-10.0)
[2023-12-26] MEDS: IRON SUCROSE INJECTION 300 MG in SODIUM CHLORIDE 250 ML IVPB ONE (12:17)
[2023-12-26 14:50] VITALS: RESP 18; TEMP 97.7
[2023-12-26 15:15] VITALS: BP 125/60; PULSE 77
[2024-01-02] MEDS ORDERED: MAGNESIUM SULFATE IN WATER 2 GM/50 ML IVPB IVPB ONE (07:45)
== END 2023-12-26 14:20 | disposition home or self-care (01) ==
LOC: J7W 10:54 → JONCNONCHE 10:54
PROVIDERS: ATTEND Internal Medicine Hematology & Oncology
PROC: 3E033GC Introduction of Other Therapeutic Substance into Peripheral Vein, Percutaneous Approach (ICD-10-PCS; principal; 2023-12-26)
DX: D50.9 Iron deficiency anemia, unspecified (principal); E83.42 Hypomagnesemia
CPT/HCPCS: 36415; 83735; 85025; 96365; 96366; J1756

== ENCOUNTER 2024-01-02 11:30 | Day surgery (SDC) | payer OTHER ==
[2024-01-02] MEDS: IRON SUCROSE INJECTION 300 MG in SODIUM CHLORIDE 250 ML IVPB ONE (12:08)
[2024-01-02 12:34] LABS: HEMOGLOBIN 8.8 GM/dL (10.7-15.3); MCH 26.3 pg (25.7-33.7); MCHC 31.6 g/dl (32.0-36.0); MEAN CELL VOLUME 83.3 fl (80-96); MEAN PLT VOLUME 10.2 fl (7.5-11.1); PLATELET COUNT 53 10^3/uL (134-434); RBC 3.36 M/mm3 (3.60-5.2); RDW 23.2 % (11.6-15.6)
[2024-01-02 12:42] LABS: WHITE BLOOD COUNT 1.7 K/mm3 (4.0-10.0)
[2024-01-02 13:04] LABS: ANISOCYTOSIS 0; MACROCYTOSIS 0
[2024-01-02] MEDS: MAGNESIUM SULFATE IN WATER 2 GM/50 ML IVPB IVPB ONE (13:48)
[2024-01-02 15:18] VITALS: TEMP 98
[2024-01-02 15:23] VITALS: BP 101/47; PULSE 73; RESP 20
== END 2024-01-02 15:00 | disposition home or self-care (01) ==
LOC: J7W 11:30 → JONCCHEMO 11:30
PROVIDERS: ATTEND Internal Medicine Hematology & Oncology
PROC: 3E033GC Introduction of Other Therapeutic Substance into Peripheral Vein, Percutaneous Approach (ICD-10-PCS; principal; 2024-01-02)
DX: E61.1 Iron deficiency (principal)
CPT/HCPCS: 36415; 83735; 85025; 96365; 96366; 96367; J1756

== ENCOUNTER 2024-01-09 11:34 | Day surgery (SDC) | payer OTHER ==
[2024-01-09 11:36] LABS: EOS % 2.9 % (0-4.5); HEMATOCRIT 30.4 % (32.4-45.2); HEMOGLOBIN 9.5 GM/dL (10.7-15.3); LYMPH % 15.5 % (8-40); MCH 26.5 pg (25.7-33.7); MCHC 31.3 g/dl (32.0-36.0); MEAN CELL VOLUME 84.6 fl (80-96); MEAN PLT VOLUME 9.3 fl (7.5-11.1); MONO % 12.5 % (3.8-10.2); NEUT % 69.1 % (42.8-82.8); PLATELET COUNT 59 10^3/uL (134-434); RBC 3.59 M/mm3 (3.60-5.2); RDW 24.5 % (11.6-15.6); WHITE BLOOD COUNT 3.5 K/mm3 (4.0-10.0)
[2024-01-09] MEDS: MAGNESIUM SULFATE IN WATER 2 GM/50 ML IVPB IVPB ONE (11:42)
[2024-01-09 12:24] LABS: ANISOCYTOSIS 1+; MACROCYTOSIS 1+
[2024-01-09] MEDS: IRON SUCROSE INJECTION 300 MG in SODIUM CHLORIDE 235 ML IVPB ONE (12:55)
[2024-01-09 16:52] VITALS: BP 120/61; PULSE 72; RESP 20; TEMP 97.7
== END 2024-01-09 14:20 | disposition home or self-care (01) ==
LOC: J7W 11:34 → JONCNONCHE 11:34
PROVIDERS: ATTEND Internal Medicine Hematology & Oncology
PROC: 3E033GC Introduction of Other Therapeutic Substance into Peripheral Vein, Percutaneous Approach (ICD-10-PCS; principal; 2024-01-09)
DX: E61.1 Iron deficiency (principal); E83.42 Hypomagnesemia
CPT/HCPCS: 36415; 83735; 85025; 96365; 96367; J1756

== ENCOUNTER 2024-01-16 10:58 | Day surgery (SDC) | payer OTHER ==
[2024-01-16] MEDS: MAGNESIUM SULFATE IN WATER 2 GM/50 ML IVPB IVPB ONE (11:02)
[2024-01-16 11:11] LABS: BASO % 0.6 % (0-2.0); EOS % 3.6 % (0-4.5); HEMATOCRIT 32.1 % (32.4-45.2); HEMOGLOBIN 10.5 GM/dL (10.7-15.3); LYMPH % 14.5 % (8-40); MCH 27.5 pg (25.7-33.7); MCHC 32.6 g/dl (32.0-36.0); MEAN CELL VOLUME 84.3 fl (80-96); MEAN PLT VOLUME 9.4 fl (7.5-11.1); MONO % 5.5 % (3.8-10.2); NEUT % 75.8 % (42.8-82.8); PLATELET COUNT 51 10^3/uL (134-434); RBC 3.81 M/mm3 (3.60-5.2); RDW 25.3 % (11.6-15.6); WHITE BLOOD COUNT 2.9 K/mm3 (4.0-10.0)
[2024-01-16 11:55] LABS: ANISOCYTOSIS 1+; MACROCYTOSIS 0
[2024-01-16] MEDS: IRON SUCROSE INJECTION 300 MG in SODIUM CHLORIDE 250 ML IVPB ONE (12:07)
[2024-01-16 13:14] VITALS: PULSE 71; RESP 20; TEMP 97.6
[2024-01-16 14:00] VITALS: BP 114/58
== END 2024-01-16 14:25 | disposition home or self-care (01) ==
LOC: JONCNONCHE 10:58 → J7W 10:59 → JONCNONCHE 14:25
PROVIDERS: ATTEND Internal Medicine Hematology & Oncology
PROC: 3E033GC Introduction of Other Therapeutic Substance into Peripheral Vein, Percutaneous Approach (ICD-10-PCS; principal; 2024-01-16)
PROC: 3E033GC Introduction of Other Therapeutic Substance into Peripheral Vein, Percutaneous Approach (ICD-10-PCS; 2024-01-16)
DX: D50.9 Iron deficiency anemia, unspecified (principal)
CPT/HCPCS: 36415; 83735; 85025; 96365; 96366; J1756

== ENCOUNTER 2024-03-12 09:12 | Day surgery (SDC) | payer OTHER ==
[2024-03-12] MEDS: MAGNESIUM SULFATE IN WATER 2 GM/50 ML IVPB IVPB ONE (10:26)
[2024-03-12] MEDS: IRON SUCROSE INJECTION 300 MG in SODIUM CHLORIDE 235 ML IVPB ONE (11:19)
[2024-03-12 13:10] VITALS: RESP 16; TEMP 98
[2024-03-12 13:35] VITALS: BP 112/60; PULSE 78
== END 2024-03-12 13:00 | disposition home or self-care (01) ==
LOC: JONCCHEMO 09:12 → J7W 09:12 → JONCCHEMO 13:00
PROVIDERS: ATTEND Internal Medicine Hematology & Oncology
PROC: 3E033GC Introduction of Other Therapeutic Substance into Peripheral Vein, Percutaneous Approach (ICD-10-PCS; principal; 2024-03-12)
DX: E61.1 Iron deficiency (principal); C50.211 Malignant neoplasm of upper-inner quadrant of right female breast
CPT/HCPCS: 96365; 96367; 96372; J1756

== ENCOUNTER 2024-03-19 12:15 | Day surgery (SDC) | payer OTHER ==
[2024-03-19 11:33] LABS: HEMATOCRIT 25.7 % (32.4-45.2); MCH 25.7 pg (25.7-33.7); MCHC 31.3 g/dl (32.0-36.0); MEAN CELL VOLUME 82.2 fl (80-96); MEAN PLT VOLUME 8.8 fl (7.5-11.1); PLATELET COUNT 62 10^3/uL (134-434); RBC 3.12 M/mm3 (3.60-5.2); RDW 22.2 % (11.6-15.6)
[2024-03-19 11:35] LABS: WHITE BLOOD COUNT 1.9 K/mm3 (4.0-10.0)
[2024-03-19] MEDS: IRON SUCROSE INJECTION 300 MG in SODIUM CHLORIDE 235 ML IVPB ONE (11:38)
[2024-03-19 12:25] LABS: ANISOCYTOSIS 2+; MACROCYTOSIS 1+
[2024-03-19] MEDS: MAGNESIUM SULFATE IN WATER 2 GM/50 ML IVPB IVPB ONE (12:41)
[2024-03-19] MEDS: MAGNESIUM OXIDE 400 MG TABLET (FP) PO ONE (14:08)
[2024-03-19] MEDS: TBO-FILGRASTIM 300 MCG/0.5 ML DISP.SYRINGE SQ SCH (14:22)
[2024-03-19 14:44] VITALS: RESP 18; TEMP 97.4
[2024-03-19 14:48] VITALS: BP 110/55; PULSE 72
== END 2024-03-19 14:40 | disposition home or self-care (01) ==
LOC: JONCNONCHE 12:15 → J7W 12:16 → JONCNONCHE 14:40
PROVIDERS: ATTEND Internal Medicine Hematology & Oncology
PROC: 3E033GC Introduction of Other Therapeutic Substance into Peripheral Vein, Percutaneous Approach (ICD-10-PCS; principal; 2024-03-19)
PROC: 3E033GC Introduction of Other Therapeutic Substance into Peripheral Vein, Percutaneous Approach (ICD-10-PCS; 2024-03-19)
DX: C50.211 Malignant neoplasm of upper-inner quadrant of right female breast (principal); E61.1 Iron deficiency; D70.9 Neutropenia, unspecified
CPT/HCPCS: 36415; 83735; 85025; 96365; 96367; J1447; J1756

== ENCOUNTER 2024-03-26 10:57 | Day surgery (SDC) | payer OTHER ==
[2024-03-26 11:04] LABS: HEMATOCRIT 30.5 % (32.4-45.2); HEMOGLOBIN 9.5 GM/dL (10.7-15.3); MCH 25.9 pg (25.7-33.7); MEAN CELL VOLUME 83.4 fl (80-96); MEAN PLT VOLUME 8.4 fl (7.5-11.1); PLATELET COUNT 59 10^3/uL (134-434); RBC 3.66 M/mm3 (3.60-5.2); RDW 24.4 % (11.6-15.6)
[2024-03-26] MEDS: IRON SUCROSE INJECTION 300 MG in SODIUM CHLORIDE 235 ML IVPB ONE (11:30)
[2024-03-26 11:43] LABS: ANISOCYTOSIS 0; MACROCYTOSIS 0; OVALOCYTE 1+
[2024-03-26] MEDS: MAGNESIUM SULFATE IN WATER 2 GM/50 ML IVPB IVPB ONE (13:07)
[2024-03-26 15:39] VITALS: RESP 20; TEMP 98
[2024-03-26 15:43] VITALS: BP 117/58; PULSE 70
== END 2024-03-26 14:30 | disposition home or self-care (01) ==
LOC: J7W 10:57 → JONCCHEMO 10:57
PROVIDERS: ATTEND Internal Medicine Hematology & Oncology
PROC: 3E013GC Introduction of Other Therapeutic Substance into Subcutaneous Tissue, Percutaneous Approach (ICD-10-PCS; principal; 2024-03-26)
DX: E61.1 Iron deficiency (principal)
CPT/HCPCS: 36415; 83735; 85025; 96365; J1756

== ENCOUNTER 2024-04-02 11:09 | Day surgery (SDC) | payer OTHER ==
[2024-04-02] MEDS: IRON SUCROSE INJECTION 300 MG in SODIUM CHLORIDE 250 ML IVPB ONE (10:50)
[2024-04-02 11:26] LABS: BASO % 0.8 % (0-2.0); EOS % 4.4 % (0-4.5); HEMATOCRIT 28.8 % (32.4-45.2); HEMOGLOBIN 9.1 GM/dL (10.7-15.3); LYMPH % 19.6 % (8-40); MCH 26.6 pg (25.7-33.7); MCHC 31.6 g/dl (32.0-36.0); MEAN CELL VOLUME 84.2 fl (80-96); MEAN PLT VOLUME 9.1 fl (7.5-11.1); MONO % 8.4 % (3.8-10.2); NEUT % 66.8 % (42.8-82.8); PLATELET COUNT 52 10^3/uL (134-434); RBC 3.42 M/mm3 (3.60-5.2); RDW 25.7 % (11.6-15.6); WHITE BLOOD COUNT 2.2 K/mm3 (4.0-10.0)
[2024-04-02 12:14] LABS: ANISOCYTOSIS 1+; MACROCYTOSIS 1+
[2024-04-02] MEDS: MAGNESIUM SULFATE IN WATER 2 GM/50 ML IVPB IVPB ONE (12:39)
[2024-04-02 13:14] VITALS: RESP 18; TEMP 98
[2024-04-02 15:42] VITALS: BP 114/54; PULSE 73
== END 2024-04-02 12:45 | disposition home or self-care (01) ==
LOC: JONCCHEMO 11:09 → J7W 11:09 → JONCCHEMO 12:45
PROVIDERS: ATTEND Internal Medicine Hematology & Oncology
PROC: 3E033GC Introduction of Other Therapeutic Substance into Peripheral Vein, Percutaneous Approach (ICD-10-PCS; principal; 2024-04-02)
DX: D50.9 Iron deficiency anemia, unspecified (principal)
CPT/HCPCS: 36415; 83735; 85025; 96372; J1756

== ENCOUNTER 2024-04-09 10:59 | Day surgery (SDC) | payer OTHER ==
[2024-04-09] MEDS: IRON SUCROSE INJECTION 300 MG in SODIUM CHLORIDE 250 ML IVPB ONE (11:16)
[2024-04-09 11:56] LABS: BASO % 0.8 % (0-2.0); HEMOGLOBIN 9.3 GM/dL (10.7-15.3); LYMPH % 26.2 % (8-40); MCH 27.2 pg (25.7-33.7); MCHC 31.1 g/dl (32.0-36.0); MEAN CELL VOLUME 87.5 fl (80-96); MEAN PLT VOLUME 9.4 fl (7.5-11.1); MONO % 8.5 % (3.8-10.2); NEUT % 60.5 % (42.8-82.8); PLATELET COUNT 63 10^3/uL (134-434); RBC 3.43 M/mm3 (3.60-5.2); RDW 25.7 % (11.6-15.6); WHITE BLOOD COUNT 2.5 K/mm3 (4.0-10.0)
[2024-04-09 12:41] LABS: ANISOCYTOSIS 2+; MACROCYTOSIS 1+
[2024-04-09] MEDS: MAGNESIUM SULFATE IN WATER 2 GM/50 ML IVPB IVPB ONE (13:00)
[2024-04-09 18:20] VITALS: RESP 20; TEMP 97.6
[2024-04-09 18:26] VITALS: BP 113/59; PULSE 75
== END 2024-04-09 14:35 | disposition home or self-care (01) ==
LOC: JONCCHEMO 10:59 → J7W 11:02 → JONCCHEMO 14:35
PROVIDERS: ATTEND Internal Medicine Hematology & Oncology
PROC: 3E033GC Introduction of Other Therapeutic Substance into Peripheral Vein, Percutaneous Approach (ICD-10-PCS; principal; 2024-04-09)
DX: E61.1 Iron deficiency (principal)
CPT/HCPCS: 36415; 83735; 85025; 96365; 96366; J1756

== ENCOUNTER 2024-05-18 10:34 | Observation (INO) | payer OTHER ==
[2024-05-18 12:21] LABS: BASO % 0.6 % (0-2.0); EOS % 3.8 % (0-4.5); HEMATOCRIT 26.9 % (32.4-45.2); HEMOGLOBIN 8.3 GM/dL (10.7-15.3); LYMPH % 20.8 % (8-40); MCH 25.2 pg (25.7-33.7); MCHC 30.7 g/dl (32.0-36.0); MEAN CELL VOLUME 82.1 fl (80-96); MEAN PLT VOLUME 9.5 fl (7.5-11.1); MONO % 9.1 % (3.8-10.2); NEUT % 65.7 % (42.8-82.8); PLATELET COUNT 55 10^3/uL (134-434); RBC 3.28 M/mm3 (3.60-5.2); RDW 19.6 % (11.6-15.6); WHITE BLOOD COUNT 2.2 K/mm3 (4.0-10.0)
[2024-05-18 12:24] LABS: INR 1.29 (0.83-1.09); PROTHROMBIN TIME (PATIENT) 14.1 SEC (9.7-13.0)
[2024-05-18 12:27] LABS: ACTIVATED PTT 32.6 SECONDS (25.2-36.5)
[2024-05-18 13:02] LABS: POTASSIUM 4.3 mmol/L (3.5-5.1)
[2024-05-18 13:04] LABS: BLOOD UREA NITROGEN 18.8 mg/dL (7-18); CALCIUM 8.5 mg/dL (8.5-10.1)
[2024-05-18 13:05] LABS: ALBUMIN 2.8 g/dl (3.4-5.0); MAGNESIUM 1.4 mg/dL (1.8-2.4)
[2024-05-18 13:08] LABS: CREATININE 0.8 mg/dL (0.55-1.3); PHOSPHOROUS 2.8 mg/dL (2.5-4.9)
[2024-05-18 13:09] LABS: BILIRUBIN,TOTAL 0.9 mg/dL (0.2-1); TOT PROT 6.4 g/dl (6.4-8.2)
[2024-05-18 13:13] LABS: N-TERMINAL BNP 154.7 pg/ml (5-125)
[2024-05-18] MEDS ORDERED: MAGNESIUM SULFATE IN WATER 2 GM/50 ML IVPB IVPB ONE (13:21)
[2024-05-18] MEDS: MAGNESIUM SULFATE IN WATER 2 GM/50 ML IVPB IVPB ONE (13:22)
[2024-05-18 13:26] LABS: EPI CELLS 12 /uL (0-25.1); HYALINE CASTS 0 /uL (0-3.1); PH,URINE 5.5 (5.0-8.0); URINE APPEARANCE CLEAR; URINE BACTERIA >9,000 /uL (0-1359); URINE BILIRUBIN NEGATIVE (NEGATIVE); URINE COLOR YELLOW; URINE GLUCOSE (UA) NEGATIVE (NEGATIVE); URINE KETONE NEGATIVE (NEGATIVE); URINE LEUK ESTERASE NEGATIVE (NEGATIVE); URINE NITRITE POSITIVE (NEGATIVE); URINE PROTEIN 1+ (NEGATIVE); URINE UROBILINOGEN 0.2 mg/dL (0.2-1.0); URINE WBC 18 /uL (0-25.8)
[2024-05-18 13:42] LABS: URINE RBC 42 /uL (0-23.9)
[2024-05-18] MEDS: SPIRONOLACTONE 25 MG TABLET PO SCH (15:10)
[2024-05-18] MEDS ORDERED: SPIRONOLACTONE 25 MG TABLET ONE (15:10)
[2024-05-18] MEDS ORDERED: FUROSEMIDE 20 MG TABLET (FP) ONE (15:10)
[2024-05-18] MEDS: FUROSEMIDE 20 MG TABLET (FP) PO SCH (15:10)
[2024-05-18 15:46] VITALS: BMI 28.4
[2024-05-18] MEDS: metFORMIN HCL 500 MG TABLET (FP) PO SCH (21:41)
[2024-05-18] MEDS: CARVEDILOL 6.25 MG TABLET (FP) PO SCH (21:41)
[2024-05-18] MEDS: glipiZIDE 5 MG TABLET (FP) PO SCH (21:41)
[2024-05-19] MEDS: LEVOTHYROXINE NA 125 MCG TABLET (FP) PO SCH (06:10)
[2024-05-19] MEDS: PANTOPRAZOLE 40 MG TABLET PO SCH (09:48)
[2024-05-19 09:57] LABS: EOS % 4.1 % (0-4.5); HEMATOCRIT 24.2 % (32.4-45.2); HEMOGLOBIN 7.5 GM/dL (10.7-15.3); LYMPH % 30.1 % (8-40); MCH 25.4 pg (25.7-33.7); MCHC 31.1 g/dl (32.0-36.0); MEAN CELL VOLUME 81.6 fl (80-96); MEAN PLT VOLUME 8.8 fl (7.5-11.1); MONO % 12.9 % (3.8-10.2); NEUT % 51.9 % (42.8-82.8); PLATELET COUNT 53 10^3/uL (134-434); RBC 2.97 M/mm3 (3.60-5.2); RDW 19.3 % (11.6-15.6); WHITE BLOOD COUNT 2.3 K/mm3 (4.0-10.0)
[2024-05-19 10:35] LABS: POTASSIUM 4.1 mmol/L (3.5-5.1)
[2024-05-19 10:40] LABS: CALCIUM 8.7 mg/dL (8.5-10.1); MAGNESIUM 1.5 mg/dL (1.8-2.4)
[2024-05-19 10:41] LABS: ALBUMIN 2.7 g/dl (3.4-5.0)
[2024-05-19 10:42] LABS: BLOOD UREA NITROGEN 17.1 mg/dL (7-18)
[2024-05-19 10:45] LABS: CREATININE 0.7 mg/dL (0.55-1.3); PHOSPHOROUS 2.9 mg/dL (2.5-4.9); TOT PROT 5.9 g/dl (6.4-8.2)
[2024-05-19] MEDS: MAGNESIUM SULFATE IN WATER 2 GM/50 ML IVPB IVPB ONE ×2 (11:00→17:45)
[2024-05-19 15:46] LABS: BF WBC & OTHER NUCLEATED CELLS 272 /mm3; BODY FLUID MACROPHAGES 21 %; BODY FLUID MESOTHELIAL 5 %
[2024-05-20 09:44] LABS: HEMATOCRIT 24.2 % (32.4-45.2); HEMOGLOBIN 7.8 GM/dL (10.7-15.3); MCH 25.7 pg (25.7-33.7); MCHC 32.1 g/dl (32.0-36.0); MEAN PLT VOLUME 9.3 fl (7.5-11.1); PLATELET COUNT 47 10^3/uL (134-434); RBC 3.02 M/mm3 (3.60-5.2); RDW 19.8 % (11.6-15.6); WHITE BLOOD COUNT 2.3 K/mm3 (4.0-10.0)
[2024-05-20 10:10] LABS: POTASSIUM 4.1 mmol/L (3.5-5.1)
[2024-05-20 10:12] LABS: ALBUMIN 2.7 g/dl (3.4-5.0); CALCIUM 8.8 mg/dL (8.5-10.1); MAGNESIUM 1.4 mg/dL (1.8-2.4)
[2024-05-20 10:15] LABS: CREATININE 0.7 mg/dL (0.55-1.3)
[2024-05-20 10:17] LABS: TOT PROT 6.1 g/dl (6.4-8.2)
[2024-05-20] MEDS: MAGNESIUM SULFATE IN WATER 2 GM/50 ML IVPB IVPB ONE (12:42)
[2024-05-20 15:06] LABS: BODY FLUID ALBUMIN 0.7 g/dL (Not Estab.)
[2024-05-21 09:57] LABS: HEMATOCRIT 24.5 % (32.4-45.2); HEMOGLOBIN 7.8 GM/dL (10.7-15.3); MCH 25.4 pg (25.7-33.7); MEAN CELL VOLUME 79.4 fl (80-96); MEAN PLT VOLUME 9.9 fl (7.5-11.1); PLATELET COUNT 55 10^3/uL (134-434); RBC 3.08 M/mm3 (3.60-5.2); RDW 19.4 % (11.6-15.6); WHITE BLOOD COUNT 2.2 K/mm3 (4.0-10.0)
[2024-05-21 10:14] LABS: POTASSIUM 4.1 mmol/L (3.5-5.1)
[2024-05-21 10:21] LABS: CALCIUM 8.7 mg/dL (8.5-10.1)
[2024-05-21 10:22] LABS: ALBUMIN 2.7 g/dl (3.4-5.0); BLOOD UREA NITROGEN 21.7 mg/dL (7-18); MAGNESIUM 1.5 mg/dL (1.8-2.4)
[2024-05-21 10:25] LABS: CREATININE 0.7 mg/dL (0.55-1.3)
[2024-05-21 10:27] LABS: BILIRUBIN,TOTAL 1.1 mg/dL (0.2-1); TOT PROT 6.1 g/dl (6.4-8.2)
[2024-05-21] MEDS: MAGNESIUM SULFATE IN WATER 2 GM/50 ML IVPB IVPB ONE ×2 (12:07→22:22)
[2024-05-21 21:14] LABS: POTASSIUM 4.4 mmol/L (3.5-5.1)
[2024-05-21 21:15] LABS: MAGNESIUM 1.7 mg/dL (1.8-2.4)
[2024-05-22] MEDS: LEVOTHYROXINE NA 125 MCG TABLET (FP) PO SCH (06:57)
[2024-05-22 07:43] LABS: HEMATOCRIT 23.5 % (32.4-45.2); HEMOGLOBIN 7.5 GM/dL (10.7-15.3); MCH 25.5 pg (25.7-33.7); MEAN CELL VOLUME 79.8 fl (80-96); MEAN PLT VOLUME 9.6 fl (7.5-11.1); PLATELET COUNT 56 10^3/uL (134-434); RBC 2.95 M/mm3 (3.60-5.2); WHITE BLOOD COUNT 2.2 K/mm3 (4.0-10.0)
[2024-05-22 08:07] LABS: POTASSIUM 4.1 mmol/L (3.5-5.1)
[2024-05-22 08:09] LABS: CALCIUM 8.7 mg/dL (8.5-10.1)
[2024-05-22 08:10] LABS: ALBUMIN 2.6 g/dl (3.4-5.0); BLOOD UREA NITROGEN 23.2 mg/dL (7-18); MAGNESIUM 1.7 mg/dL (1.8-2.4)
[2024-05-22 08:13] LABS: CREATININE 0.8 mg/dL (0.55-1.3)
[2024-05-22 08:15] LABS: BILIRUBIN,TOTAL 0.8 mg/dL (0.2-1); TOT PROT 5.9 g/dl (6.4-8.2)
[2024-05-22] MEDS: PANTOPRAZOLE 40 MG TABLET PO SCH (09:14)
[2024-05-22] MEDS: SPIRONOLACTONE 25 MG TABLET PO SCH (09:14)
[2024-05-22] MEDS: glipiZIDE 5 MG TABLET (FP) PO SCH (09:14)
[2024-05-22] MEDS: metFORMIN HCL 500 MG TABLET (FP) PO SCH (09:15)
[2024-05-22] MEDS: CARVEDILOL 6.25 MG TABLET (FP) PO SCH (09:15)
[2024-05-22] MEDS: FUROSEMIDE 20 MG TABLET (FP) PO SCH (09:15)
[2024-05-22] MEDS ORDERED: MAGNESIUM OXIDE 400 MG TABLET (FP) PO SCH (12:00)
[2024-05-22] MEDS: MAGNESIUM OXIDE 400 MG TABLET (FP) PO SCH (13:34)
[2024-05-22 20:20] LABS: HEMATOCRIT 25.6 % (32.4-45.2); HEMOGLOBIN 8.1 GM/dL (10.7-15.3); MCH 25.1 pg (25.7-33.7); MCHC 31.6 g/dl (32.0-36.0); MEAN CELL VOLUME 79.3 fl (80-96); MEAN PLT VOLUME 9.2 fl (7.5-11.1); PLATELET COUNT 48 10^3/uL (134-434); RBC 3.22 M/mm3 (3.60-5.2); RDW 19.3 % (11.6-15.6); WHITE BLOOD COUNT 2.4 K/mm3 (4.0-10.0)
[2024-05-22] MEDS: MAGNESIUM SULFATE IN WATER 2 GM/50 ML IVPB IVPB ONE (22:26)
[2024-05-23 16:01] LABS: HEMATOCRIT 25.4 % (32.4-45.2); MCH 25.1 pg (25.7-33.7); MCHC 31.4 g/dl (32.0-36.0); MEAN PLT VOLUME 9.5 fl (7.5-11.1); PLATELET COUNT 54 10^3/uL (134-434); RBC 3.18 M/mm3 (3.60-5.2); RDW 19.5 % (11.6-15.6); WHITE BLOOD COUNT 2.5 K/mm3 (4.0-10.0)
[2024-05-23 16:12] LABS: POTASSIUM 4.5 mmol/L (3.5-5.1)
[2024-05-23 16:14] LABS: ALBUMIN 2.8 g/dl (3.4-5.0); BLOOD UREA NITROGEN 26.9 mg/dL (7-18); CALCIUM 8.8 mg/dL (8.5-10.1); MAGNESIUM 1.7 mg/dL (1.8-2.4)
[2024-05-23 16:18] LABS: BILIRUBIN,TOTAL 0.7 mg/dL (0.2-1); CREATININE 0.9 mg/dL (0.55-1.3); TOT PROT 6.3 g/dl (6.4-8.2)
[2024-05-23] MEDS: MAGNESIUM SULF 50% (8.12 MEQ/2 ML-1 GM VIAL) IVPB ONE (18:15)
[2024-05-23 22:09] VITALS: RESP 19; TEMP 98.6
[2024-05-23 23:21] VITALS: BP 120/78; PULSE 78
== END 2024-05-23 23:20 | disposition home or self-care (01) ==
LOC: JER 10:34 → JERBED 13:12 → J5S 15:23 → J4W 05-22 02:17
PROVIDERS: ADMIT Internal Medicine; ATTEND Physician Assistant
PROC: 3E033GC Introduction of Other Therapeutic Substance into Peripheral Vein, Percutaneous Approach (ICD-10-PCS; principal; 2024-05-18)
PROC: 0W9G3ZX Drainage of Peritoneal Cavity, Percutaneous Approach, Diagnostic (ICD-10-PCS; 2024-05-18)
DX: R18.8 Other ascites (principal); K74.60 Unspecified cirrhosis of liver; D69.6 Thrombocytopenia, unspecified; E03.9 Hypothyroidism, unspecified; I10 Essential (primary) hypertension; E11.9 Type 2 diabetes mellitus without complications; E83.42 Hypomagnesemia; Z85.3 Personal history of malignant neoplasm of breast; Z88.0 Allergy status to penicillin
CPT/HCPCS: 36415; 76705-TC; 76942-TC; 80053; 81003; 82042; 82150; 82272; 82465; 82728; 82746; 82945; 83540; 83550; 83615; 83735; 83880; 83986; 84100; 84132; 84157; 84439; 84443; 84478; 84481; 85025; 85027; 85610; 85730; 86850; 86900; 86901; 87070; 87075; 87102; 87116; 87205; 87206; 87210; 88108; 88305-TC; 93005; 93010; 93975; 96365; 96366; 99285-25; G0378

== ENCOUNTER 2024-06-04 11:41 | Day surgery (SDC) | payer OTHER ==
[2024-06-04 12:09] LABS: BASO % 1.1 % (0-2.0); EOS % 4.6 % (0-4.5); HEMATOCRIT 23.2 % (32.4-45.2); HEMOGLOBIN 7.3 GM/dL (10.7-15.3); LYMPH % 20.6 % (8-40); MCH 23.9 pg (25.7-33.7); MCHC 31.6 g/dl (32.0-36.0); MEAN CELL VOLUME 75.6 fl (80-96); MEAN PLT VOLUME 10.7 fl (7.5-11.1); MONO % 12.3 % (3.8-10.2); NEUT % 61.4 % (42.8-82.8); PLATELET COUNT 71 10^3/uL (134-434); RBC 3.07 M/mm3 (3.60-5.2); RDW 18.9 % (11.6-15.6); WHITE BLOOD COUNT 2.8 K/mm3 (4.0-10.0)
[2024-06-04 12:31] LABS: CHLORIDE 96 mmol/L (98-107); POTASSIUM 4.8 mmol/L (3.5-5.1); SODIUM 132 mmol/L (136-145)
[2024-06-04 12:34] LABS: ANION GAP 13 mmol/L (4-13); BLOOD UREA NITROGEN 30.8 mg/dL (7-18); CALCIUM 9.1 mg/dL (8.5-10.1); CO2 23 mmol/L (21-32); GLUCOSE,RANDOM 342 mg/dL (74-106); MAGNESIUM 1.8 mg/dL (1.8-2.4)
[2024-06-04 12:36] LABS: IRON SERUM 19 ug/dL (50-175); SGOT/AST 23 U/L (15-37); SGPT/ALT 33 U/L (13-61)
[2024-06-04 12:38] LABS: BILIRUBIN,TOTAL 0.7 mg/dL (0.2-1); TOT PROT 6.7 g/dl (6.4-8.2); TOTAL IRON BINDING CAPACITY 396 ug/dL (250-450)
[2024-06-04 12:39] LABS: ALK PHOS 82 U/L (45-117)
[2024-06-04] MEDS: MAGNESIUM SULFATE IN WATER 2 GM/50 ML IVPB IVPB ONE (12:45)
[2024-06-04] MEDS: TBO-FILGRASTIM 480 MCG/0.8 ML DISP.SYRIN SQ ONE (12:55)
[2024-06-04] MEDS: INSULIN (NOVOLOG) ASPART 100 UNITS/ML 10ML VIAL SQ STA (13:43)
[2024-06-04] MEDS: IRON SUCROSE INJECTION 300 MG in SODIUM CHLORIDE 250 ML IVPB ONE (13:43)
[2024-06-04] MEDS ORDERED: INSULIN ASPART SLIDING SCALE (NOVOLOG) 1 VIAL SQ ONE (15:15)
[2024-06-04 15:51] VITALS: RESP 18; TEMP 97.2
[2024-06-04 15:57] VITALS: BP 92/47; PULSE 84
== END 2024-06-04 16:12 | disposition home or self-care (01) ==
LOC: JONCNONCHE 11:41
PROVIDERS: ATTEND Internal Medicine Hematology & Oncology
PROC: 3E033GC Introduction of Other Therapeutic Substance into Peripheral Vein, Percutaneous Approach (ICD-10-PCS; principal; 2024-06-04)
PROC: 3E013VG Introduction of Insulin into Subcutaneous Tissue, Percutaneous Approach (ICD-10-PCS; 2024-06-04)
DX: E61.1 Iron deficiency (principal); C50.211 Malignant neoplasm of upper-inner quadrant of right female breast; R73.09 Other abnormal glucose; Z76.89 Persons encountering health services in other specified circumstances
CPT/HCPCS: 36415; 80053; 82378; 82728; 82962; 83540; 83550; 83735; 85025; 86300; 96365; 96367; 96372; J1756

== ENCOUNTER 2024-06-11 11:15 | Day surgery (SDC) | payer OTHER ==
[2024-06-11] MEDS: IRON SUCROSE INJECTION 300 MG in SODIUM CHLORIDE 250 ML IVPB ONE (11:55)
[2024-06-11 12:16] LABS: ABSOLUTE IMMATURE GRANULOCYTES 0.02 x10^3/uL (0.0-0.031); BASOPHILS # 0.03 x10^3/uL (0.01-0.08); HEMATOCRIT 27.4 % (34.1-44.9); HEMOGLOBIN 8.2 g/dL (11.2-15.7); MCHC 29.9 g/dl (32.2-35.5); MEAN CELL VOLUME 81.5 fl (79.4-94.8); MONOCYTE # 0.45 x10^3/uL (0.24-0.86); MONOCYTE % 11.1 % (4.7-12.5); PLATELET COUNT # 68 x10^3/uL (182-369)
[2024-06-11] MEDS: MAGNESIUM SULFATE IN WATER 2 GM/50 ML IVPB IVPB ONE (13:35)
[2024-06-11 13:44] VITALS: TEMP 97.3
[2024-06-11] MEDS: TBO-FILGRASTIM 480 MCG/0.8 ML DISP.SYRIN SQ ONE (14:31)
[2024-06-11 14:44] VITALS: BP 90/40; PULSE 71; RESP 18
== END 2024-06-11 14:49 | disposition home or self-care (01) ==
LOC: JONCCHEMO 11:15 → J7W 11:15 → JONCCHEMO 14:49
PROVIDERS: ATTEND Internal Medicine Hematology & Oncology
PROC: 3E033GC Introduction of Other Therapeutic Substance into Peripheral Vein, Percutaneous Approach (ICD-10-PCS; principal; 2024-06-11)
PROC: 3E013GC Introduction of Other Therapeutic Substance into Subcutaneous Tissue, Percutaneous Approach (ICD-10-PCS; 2024-06-11)
DX: E61.1 Iron deficiency (principal)
CPT/HCPCS: 36415; 83735; 85025; 96365; 96372; J1447; J1756

== ENCOUNTER 2024-06-18 10:57 | Day surgery (SDC) | payer OTHER ==
[2024-06-18] MEDS: IRON SUCROSE INJECTION 300 MG in SODIUM CHLORIDE 250 ML IVPB ONE (11:56)
[2024-06-18 12:27] LABS: BASOPHILS # 0.03 x10^3/uL (0.01-0.08); EOSINOPHIL % 4.7 % (0.7-5.8); HEMATOCRIT 25.4 % (34.1-44.9); HEMOGLOBIN 7.3 g/dL (11.2-15.7); MCHC 28.7 g/dl (32.2-35.5); MEAN CELL VOLUME 86.4 fl (79.4-94.8); MONOCYTE # 0.38 x10^3/uL (0.24-0.86); MONOCYTE % 8.8 % (4.7-12.5); PLATELET COUNT 75 x10^3/uL (182-369); RDW 24.3 % (12.4-16.4)
[2024-06-18] MEDS: MAGNESIUM SULFATE IN WATER 2 GM/50 ML IVPB IVPB ONE (13:39)
[2024-06-18 16:42] VITALS: RESP 20; TEMP 97.8
[2024-06-18 16:44] VITALS: BP 93/48; PULSE 77
== END 2024-06-18 14:45 | disposition home or self-care (01) ==
LOC: JONCNONCHE 10:57 → J7W 11:01 → JONCNONCHE 14:45
PROVIDERS: ATTEND Internal Medicine Hematology & Oncology
PROC: 3E033GC Introduction of Other Therapeutic Substance into Peripheral Vein, Percutaneous Approach (ICD-10-PCS; principal; 2024-06-18)
DX: E61.1 Iron deficiency (principal); D70.9 Neutropenia, unspecified
CPT/HCPCS: 36415; 83735; 85025; 96365; 96366; 96367; J1756

== ENCOUNTER 2024-07-02 11:17 | Day surgery (SDC) | payer OTHER ==
[~2024-07-02 11:17] MED LIST changes: +TBO-FILGRASTIM 480 MCG/0.8 ML DISP.SYRIN SQ ONE
[2024-07-02 11:44] LABS: ABSOLUTE IMMATURE GRANULOCYTES 0.01 x10^3/uL (0.0-0.031); BASOPHILS # 0.02 x10^3/uL (0.01-0.08); EOSINOPHIL % 5.5 % (0.7-5.8); EOSINOPHILS # 0.13 x10^3/uL (0.04-0.36); HEMATOCRIT 26.5 % (34.1-44.9); HEMOGLOBIN 7.7 g/dL (11.2-15.7); MCHC 29.1 g/dl (32.2-35.5); MEAN CELL VOLUME 87.2 fl (79.4-94.8); MEAN PLT VOLUME 11.7 fl (9.4-12.3); MONOCYTE # 0.22 x10^3/uL (0.24-0.86); MONOCYTE % 9.3 % (4.7-12.5); PLATELET COUNT 75 x10^3/uL (182-369); RDW 23.5 % (12.4-16.4)
[2024-07-02] MEDS: IRON SUCROSE INJECTION 300 MG in SODIUM CHLORIDE 250 ML IVPB ONE (12:00)
[2024-07-02] MEDS: MAGNESIUM SULFATE IN WATER 2 GM/50 ML IVPB IVPB ONE (13:32)
[2024-07-02] MEDS: TBO-FILGRASTIM 480 MCG/0.8 ML DISP.SYRIN SQ ONE (14:31)
[2024-07-02 16:09] VITALS: RESP 20
[2024-07-05 07:46] VITALS: BP 90/45; PULSE 84; TEMP 98.4
== END 2024-07-02 14:40 | disposition home or self-care (01) ==
LOC: JONCNONCHE 11:17 → J7W 11:18 → JONCNONCHE 14:40
PROVIDERS: ATTEND Internal Medicine Hematology & Oncology
PROC: 3E033GC Introduction of Other Therapeutic Substance into Peripheral Vein, Percutaneous Approach (ICD-10-PCS; principal; 2024-07-02)
PROC: 3E013GC Introduction of Other Therapeutic Substance into Subcutaneous Tissue, Percutaneous Approach (ICD-10-PCS; 2024-07-02)
DX: D50.9 Iron deficiency anemia, unspecified (principal)
CPT/HCPCS: 36415; 83735; 85025; 96365; 96366; 96367; 96372; J1447; J1756

== ENCOUNTER 2024-07-30 11:10 | Day surgery (SDC) | payer OTHER ==
[2024-07-30] MEDS: IRON SUCROSE INJECTION 300 MG in SODIUM CHLORIDE 250 ML IVPB ONE (11:40)
[2024-07-30 11:54] LABS: HEMOGLOBIN 7.5 g/dL (11.2-15.7); MONOCYTE # 0.25 x10^3/uL (0.24-0.86)
[2024-07-30 11:56] LABS: ABSOLUTE IMMATURE GRANULOCYTES 0.03 x10^3/uL (0.0-0.031); BASOPHILS # 0.02 x10^3/uL (0.01-0.08); EOSINOPHIL % 6.9 % (0.7-5.8); EOSINOPHILS # 0.15 x10^3/uL (0.04-0.36); HEMATOCRIT 24.9 % (34.1-44.9); MCHC 30.1 g/dl (32.2-35.5); MEAN CELL VOLUME 84.4 fl (79.4-94.8); MONOCYTE % 11.5 % (4.7-12.5); PLATELET COUNT 60 x10^3/uL (182-369); RDW 22.3 % (12.4-16.4)
[2024-07-30] MEDS: MAGNESIUM SULFATE IN WATER 2 GM/50 ML IVPB IVPB ONE (13:15)
[2024-07-30] MEDS: TBO-FILGRASTIM 480 MCG/0.8 ML DISP.SYRIN SQ ONE (14:12)
[2024-07-30 17:39] VITALS: TEMP 97.6
[2024-07-30 17:41] VITALS: RESP 18
[2024-07-30 17:53] VITALS: BP 100/47; PULSE 83
== END 2024-07-30 14:30 | disposition home or self-care (01) ==
LOC: JONCNONCHE 11:10 → J7W 12:46 → JONCNONCHE 14:30
PROVIDERS: ATTEND Internal Medicine Hematology & Oncology
PROC: 3E033GC Introduction of Other Therapeutic Substance into Peripheral Vein, Percutaneous Approach (ICD-10-PCS; principal; 2024-07-30)
PROC: 3E013GC Introduction of Other Therapeutic Substance into Subcutaneous Tissue, Percutaneous Approach (ICD-10-PCS; 2024-07-30)
DX: E61.1 Iron deficiency (principal); D70.9 Neutropenia, unspecified
CPT/HCPCS: 36415; 83735; 85025; 96365; 96366; 96367; 96372; J1447; J1756

== ENCOUNTER 2024-10-22 11:10 | Day surgery (SDC) | payer OTHER ==
[2024-10-22] MEDS: IRON SUCROSE INJECTION 300 MG in SODIUM CHLORIDE 250 ML IVPB ONE (11:35)
[2024-10-22 11:38] LABS: BASOPHILS # 0.02 x10^3/uL (0.01-0.08); MONOCYTE # 0.25 x10^3/uL (0.24-0.86); MONOCYTE % 7.6 % (4.7-12.5)
[2024-10-22 11:40] LABS: ABSOLUTE IMMATURE GRANULOCYTES 0.02 x10^3/uL (0.0-0.031); EOSINOPHIL % 4.3 % (0.7-5.8); EOSINOPHILS # 0.14 x10^3/uL (0.04-0.36); IMMATURE PLATELET FRACTION # 2.70 x10^3/uL; MCHC 30.6 g/dl (32.2-35.5); MEAN CELL VOLUME 88.8 fl (79.4-94.8); RDW 24.4 % (12.4-16.4)
[2024-10-22] MEDS: MAGNESIUM SULFATE IN WATER 2 GM/50 ML IVPB IVPB ONE (13:16)
[2024-10-22 17:05] VITALS: RESP 18; TEMP 97.9
[2024-10-22 17:08] VITALS: BP 92/44; PULSE 71
== END 2024-10-22 14:30 | disposition home or self-care (01) ==
LOC: JONCNONCHE 11:10 → J7W 11:11 → JONCNONCHE 14:30
PROVIDERS: ATTEND Internal Medicine Hematology & Oncology
PROC: 3E033GC Introduction of Other Therapeutic Substance into Peripheral Vein, Percutaneous Approach (ICD-10-PCS; principal; 2024-10-22)
DX: E61.1 Iron deficiency (principal)
CPT/HCPCS: 36415; 83735; 85025; 96365; 96367; J1756